=== PATIENT | male | born 1960 | race Caucasian/White ===

== ENCOUNTER 2017-02-10 16:46 | Emergency (ER) | payer OTHER ==
[~2017-02-10] VITALS: Ht 190.5 cm; Wt 104.3 kg
[~2017-02-10 16:46] MED LIST: AMLO10 PO; BACL10 PO; CARV25 PO; Cipro500 MG PO; Cymbalta60 MG PO; DOCU100 PO; DULO60 PO; ENOX40I SC; GABA300 PO; HYDCHL12.5 PO; HYDR1TAB94 PO; LISI20 PO; LISI5 PO; LORA1 PO; LOSA25 PO; METO50 PO; MORP30ER PO; NAPR500 PO; Naprosyn500 MG PO; Norco 5-325 Ta1 EACH PO; OXYC10TA19 PO; OXYC5 PO; PROC10 PO; Pyridium200 MG PO; QUET100 PO; RXHYDACE PO; Robaxin500 MG PO; SERT100 PO; SERT25 PO; SIME80CH PO; TAMS.4ER PO; Zestril30 MG PO; [UNRECOGNIZED DRUG - CODE] PO; [UNRECOGNIZED DRUG - OTHER]
[2017-02-10] MEDS ORDERED: Permethrin60 GM TOP (17:45)
[2017-02-10] MEDS ORDERED: HYDHCL25 PO (17:45)
== END 2017-02-10 17:47 | disposition home or self-care (01) ==
LOC: ER 16:46
DX: L25.9 Unspecified contact dermatitis, unspecified cause (principal); Z88.8 Allergy status to other drugs, medicaments and biological substances; Z79.899 Other long term (current) drug therapy; I10 Essential (primary) hypertension
CPT/HCPCS: 99283

== ENCOUNTER 2018-06-05 10:37 | Emergency (ER) | payer OTHER ==
[~2018-06-05] VITALS: Ht 190.5 cm; Wt 104.3 kg
[~2018-06-05 10:37] MED LIST changes: +HYDHCL25 PO; +Permethrin60 GM TOP
[2018-06-05 13:03] LABS: BASOPHILS ABSOLUTE AUTO 0.03 K/mm3 (0.00-0.23); BASOPHILS PERCENT AUTO 0 % (0-2); EOSINOPHILS ABSOLUTE AUTO 0.23 K/mm3 (0.00-0.68); EOSINOPHILS PERCENT AUTO 3 % (0-6); Hematocrit 45.4 % (37.0-53.0); Hemoglobin 15.2 g/dL (13.5-17.5); IMMATURE GRAN ABSOLUTE AUTO 0.03 K/mm3 (0.00-0.10); IMMATURE GRAN PERCENT AUTO 0 % (0-1); LYMPHOCYTES ABSOLUTE AUTO 2.16 K/mm3 (0.84-5.20); LYMPHOCYTES PERCENT AUTO 26 % (21-46); MONOCYTES ABSOLUTE AUTO 0.61 K/mm3 (0.16-1.47); MONOCYTES PERCENT AUTO 7 % (4-13); Mean Corpuscular HGB 30.2 pg (26.0-34.0); Mean Corpuscular HGB Conc 33.5 g/dL (31.5-36.5); Mean Corpuscular Volume 90 fL (80-100); Mean Platelet Volume 10.3 fL (9.1-12.4); NEUTROPHILS ABSOLUTE AUTO 5.16 K/mm3 (1.96-9.15); NEUTROPHILS PERCENT AUTO 63 % (41-73); Platelet Count 237 K/mm3 (150-400); RDW Coefficient Variation 12.6 % (11.7-14.2); RDW Standard Deviation 41.2 fL (35.1-46.3); Red Blood Cell Count 5.03 M/mm3 (4.30-5.90); White Blood Cell Count 8.22 K/mm3 (4.00-11.30)
[2018-06-05 13:26] LABS: Alanine Aminotransfer (ALT/SGP 37 U/L (12-78); Albumin, Blood 3.7 g/dL (3.4-5.0); Albumin/Globulin Ratio 1.2 (0.8-1.8); Alk Phos 85 U/L (50-136); Anion Gap 7 mmol/L (6-16); Aspartate Aminotrans (AST/SGOT 14 U/L (12-37); Bilirubin, Total 0.7 mg/dL (0.1-1.0); Blood Urea Nitrogen 11 mg/dL (8-24); Bun/Creatinine Ratio 10.3 (12.0-20.0); CO2, Blood 27 mmol/L (21-32); Chloride, Blood 109 mmol/L (98-108); Creatinine, Blood 1.07 mg/dL (0.60-1.20); Globulin, Blood 3.1 g/dL (2.2-4.0); Glomerular Filtration Rate >60 (60-); Glucose, Blood 115 mg/dL (70-99); Potassium, Blood 3.7 mmol/L (3.5-5.5); Sodium, Blood 143 mmol/L (136-145); Total Protein, Blood 6.8 g/dL (6.4-8.2)
[2018-06-05] MEDS ORDERED: Hydrochlorothia25 MG PO (14:36)
== END 2018-06-05 14:49 | disposition home or self-care (01) ==
LOC: ER 10:37
PROVIDERS: Emergency Medicine
DX: I16.0 Hypertensive urgency (principal); I10 Essential (primary) hypertension; Z88.8 Allergy status to other drugs, medicaments and biological substances; Z85.048 Personal history of other malignant neoplasm of rectum, rectosigmoid junction, and anus
CPT/HCPCS: 70450; 71045; 80053; 85025; 93005; 93010; 96374; 99285-25; J2543

== ENCOUNTER 2018-07-19 13:53 | Inpatient (IN) | payer OTHER ==
[~2018-07-19] VITALS: Ht 190.5 cm; Wt 110.1 kg
[~2018-07-19 13:53] MED LIST changes: +Hydrochlorothia25 MG PO
[2018-07-19] MEDS ORDERED: LISI5 PO (15:24)
[2018-07-19] MEDS ORDERED: TAMS.4ER PO (15:25)
[2018-07-19] MEDS ORDERED: Cymbalta20 MG PT (15:25)
[2018-07-19] MEDS ORDERED: GABA100 PO (15:25)
[2018-07-19] MEDS ORDERED: ATOR10 PO (15:25)
[2018-07-19 15:41] LABS: BASOPHILS ABSOLUTE AUTO 0.02 K/mm3 (0.00-0.23); BASOPHILS PERCENT AUTO 0 % (0-2); EOSINOPHILS ABSOLUTE AUTO 0.01 K/mm3 (0.00-0.68); EOSINOPHILS PERCENT AUTO 0 % (0-6); Hematocrit 41.9 % (37.0-53.0); Hemoglobin 14.2 g/dL (13.5-17.5); IMMATURE GRAN ABSOLUTE AUTO 0.13 K/mm3 (0.00-0.10); IMMATURE GRAN PERCENT AUTO 1 % (0-1); LYMPHOCYTES ABSOLUTE AUTO 0.68 K/mm3 (0.84-5.20); LYMPHOCYTES PERCENT AUTO 5 % (21-46); MONOCYTES ABSOLUTE AUTO 1.08 K/mm3 (0.16-1.47); MONOCYTES PERCENT AUTO 7 % (4-13); Mean Corpuscular HGB 30.5 pg (26.0-34.0); Mean Corpuscular HGB Conc 33.9 g/dL (31.5-36.5); Mean Corpuscular Volume 90 fL (80-100); NEUTROPHILS ABSOLUTE AUTO 12.96 K/mm3 (1.96-9.15); NEUTROPHILS PERCENT AUTO 87 % (41-73); RDW Coefficient Variation 13.4 % (11.7-14.2); RDW Standard Deviation 44.3 fL (35.1-46.3); Red Blood Cell Count 4.65 M/mm3 (4.30-5.90); White Blood Cell Count 14.88 K/mm3 (4.00-11.30)
[2018-07-19 15:42] LABS: Mean Platelet Volume 10.2 fL (9.1-12.4); Platelet Count 195 K/mm3 (150-400)
[2018-07-19 15:56] LABS: Alanine Aminotransfer (ALT/SGP 39 U/L (12-78); Albumin, Blood 4.2 g/dL (3.4-5.0); Albumin/Globulin Ratio 1.6 (0.8-1.8); Alk Phos 76 U/L (50-136); Anion Gap 12 mmol/L (6-16); Aspartate Aminotrans (AST/SGOT 18 U/L (12-37); Bilirubin, Total 1.9 mg/dL (0.1-1.0); Blood Urea Nitrogen 22 mg/dL (8-24); Bun/Creatinine Ratio 8.1 (12.0-20.0); CO2, Blood 21 mmol/L (21-32); Calcium, Blood 9.1 mg/dL (8.5-10.1); Chloride, Blood 109 mmol/L (98-108); Creatinine, Blood 2.71 mg/dL (0.60-1.20); Ethanol (Alcohol), Blood, Med <3 mg/dL; Globulin, Blood 2.6 g/dL (2.2-4.0); Glomerular Filtration Rate 26 (60-); Glucose, Blood 197 mg/dL (70-99); Potassium, Blood 3.7 mmol/L (3.5-5.5); Sodium, Blood 142 mmol/L (136-145); Total Protein, Blood 6.8 g/dL (6.4-8.2); Troponin I <0.015 ng/mL (0.000-0.040)
[2018-07-19 16:11] LABS: Bicarbonate Venous 20.9 mmol/L (24.0-30.0); PCO2 Venous 35.1 mmHg (38-42); PO2 Venous 111 mmHg (38-42); pH Blood Venous 7.37 (7.34-7.37)
[2018-07-19 16:12] LABS: Base Excess Venous -5.1 mmol/L
[2018-07-19 18:30] LABS: Magnesium, Blood 2.2 mg/dL (1.6-2.4); Phosphorus, Blood 4.7 mg/dL (2.5-4.9)
[2018-07-19 22:27] LABS: Source, Urine Voided
[2018-07-19 22:34] LABS: Bilirubin, Urine Neg (Neg); Blood, Urine 1+ (Neg); Glucose Qualitative, Urine Neg (Neg); Ketones, Urine Neg (Neg); Leukocyte Esterase, Urine Neg (Neg); Nitrite, Urine Neg (Neg); Protein, Urine 1+ (Neg); Specific Gravity, Urine 1.005 (1.003-1.022); Urobilinogen, Urine NORM (Normal)
[2018-07-19 22:37] LABS: Appearance, Urine Clear (Clear); Color, Urine Yellow (P-Yellow)
[2018-07-19 22:40] LABS: Bacteria Few /hpf; Red Blood Cells, Urine 0-2 /hpf (0-2); Squamous Epithelial Cells Not Seen /hpf (Few); White Blood Cells, Urine 0-2 /hpf (0-5)
[2018-07-19 22:46] LABS: U Amphetamine Screen DETECTED; U Barbituate Screen Not Detected; U Benzodiazapine Screen Not Detected; U Buprenorphine Screen Not Detected; U Cannabinoids Screen Not Detected; U Cocaine Screen Not Detected; U Methadone Screen Not Detected; U Methamphetamine Screen DETECTED; U Opiates Screen Not Detected; U Oxycodone Screen Not Detected; U Phencyclidine Screen Not Detected; U Propoxyphene Screen Not Detected
[2018-07-20 04:48] LABS: BASOPHILS ABSOLUTE AUTO 0.02 K/mm3 (0.00-0.23); BASOPHILS PERCENT AUTO 0 % (0-2); EOSINOPHILS ABSOLUTE AUTO 0.12 K/mm3 (0.00-0.68); EOSINOPHILS PERCENT AUTO 1 % (0-6); Hematocrit 42.3 % (37.0-53.0); Hemoglobin 14.1 g/dL (13.5-17.5); IMMATURE GRAN ABSOLUTE AUTO 0.07 K/mm3 (0.00-0.10); IMMATURE GRAN PERCENT AUTO 1 % (0-1); LYMPHOCYTES ABSOLUTE AUTO 1.81 K/mm3 (0.84-5.20); LYMPHOCYTES PERCENT AUTO 16 % (21-46); MONOCYTES ABSOLUTE AUTO 0.91 K/mm3 (0.16-1.47); MONOCYTES PERCENT AUTO 8 % (4-13); Mean Corpuscular HGB Conc 33.3 g/dL (31.5-36.5); Mean Corpuscular Volume 90 fL (80-100); Mean Platelet Volume 10.1 fL (9.1-12.4); NEUTROPHILS ABSOLUTE AUTO 8.15 K/mm3 (1.96-9.15); NEUTROPHILS PERCENT AUTO 74 % (41-73); Platelet Count 193 K/mm3 (150-400); RDW Coefficient Variation 13.6 % (11.7-14.2); RDW Standard Deviation 44.8 fL (35.1-46.3); White Blood Cell Count 11.08 K/mm3 (4.00-11.30)
[2018-07-20 05:01] LABS: International Normalized Ratio 1.03; Prothrombin Time Results 10.9 Sec (9.7-11.5)
[2018-07-20 05:20] LABS: Bun/Creatinine Ratio 8.3 (12.0-20.0); Calcium, Blood 8.5 mg/dL (8.5-10.1); Creatinine, Blood 3.36 mg/dL (0.60-1.20); Potassium, Blood 2.7 mmol/L (3.5-5.5)
--- NOTE | 2018-07-20 06:17 | NUR ---
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 PT CAME IN WITH TOXIC METABOLIC ENCEPHALOPATHY. FOUND DOWN IN THE YARD AT HOME BY NEIGHBORS. PT FAIRLY CONFUSED AND MUMBLES WHEN SPEAKING. CAN MAKE MOST NEEDS KNOWN AND CAN ANSWER YES/NO QUESTIONS. URINE TOX POSITIVE FOR METH AND TRICYCLICS. PT DENIES REGULAR ALCOHOL CONSUMPTION BUT CIWA'S STILL ORDERED. CIWA WAS 6, MAINLY BECAUSE OF CONFUSION. PT DID SEEM TO HAVE SOME MINOR VISUAL HALLUCINATIONS AT ONE POINT, THOUGHT HE SAW A DOG. HOWEVER HE MAY HAVE BEEN REFERRING TO HIS DOG AT HOME. PT HYPERTENSIVE WITH MORNING VITALS WITH SBP 190'S. RECIEVED ORDER FROM DR JOAQUIN FOR PRN HYDRALAZINE. PT HAD PHONE AND WALLET WHEN HE CAME TO ROOM. WALLET HAD CABELLO INSIDE. CALLED HARPREET FROM SECURITY TO PLACE PHONE AND WALLET IN SAFE. BED ALARM ON PT DOES ATTEMPT TO GET OUT OF BED AT TIMES BUT IS EASILY REDIRECTABLE. WILL CONTINUE TO MONITOR.
--- NOTE | 2018-07-20 14:42 | NUR ---
I received a doctor's request to visit patient. Patient is lying in bed stating that he is dying and is afraid he is going to hell. Patient also says, "He can't take it," and "He could not go on any longer." Patient immediately asks me to pray for him so he "does not go to hell" for killing himself. I provide a prayer of forgiveness of sins and tell patient that he is not going to right now. Patient begins to calm down but then starts counting down from ten and saying that he is ready and he is going to heaven. He repeats this several times and continues to live. Then his RN comes in to concrete bucket hooker his ostomy bag. I hold patient's hand through the procedure. When procedure is completed, I pray a second time for patient and he is so peaceful he looks as if he could fall asleep. Patient thanks me for the visit.
--- NOTE | 2018-07-20 16:54 | NUR ---
SHIFT SUMMARY NO ACUTE CHANGES. PATIENT IS BECOMING MORE ALERT AND ACTIVE DURING SHIFT. PATIENT WORKED WITH PT/OT. UP 1 ASSIST W/FWW. PATIENT CONTINUES TO BE VERY CONFUSED AND NEEDS FREQUENT REORIENTATION. PATIENT STATES HE BELIEVES HE IS DYING. CONSULT SENT TO DR. GUZMAN. CALL LIGHT IN REACH, WILL CONTINUE TO MONITOR.
--- NOTE | 2018-07-20 18:22 | NUR ---
[facility] Spiritual Care initial visit: Gary was quite talkative, but appeared mentally fuzzy. His story kept changing. At first he told me he has "two options: Go to nursing home or ." He beleives he will be arrested post-discharge. He could not adequately explain why. He also couldn't tell me why he thought he was dying. He denied having any family or friends. He also states that he is being evicted and he will be homeless. He says the rescue mission will not take him due to his colostemy. It was unclear if any of this was accurate. He was very relieved when I explained to him that, for today anyway, he was staying here where it is safe and cool. I affimred he is being well cared-for. This appeared to calm him. He allowed me to pray for him. [employer] will remain available.
[2018-07-21 02:03] LABS: Creatinine Urine 14.2 mg/dL (27.00-270.00)
--- NOTE | 2018-07-21 04:51 | NUR ---
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 KNOWS HE'S AT THE HOSPITAL IN [place]. KNOWS THE DATE AND PRESIDENT. SPEECH IS MUCH MORE CLEAR AND PT CAN MAKE NEEDS KNOWN. STILL SOME CONFUSION AT TIMES AND PT OFTEN SPEAKS ABOUT HOW ITS TIME FOR HIM TO "PASS AWAY". 24 HOUR URINE COLLECTION COMPLETED TONIGHT. PT CONTINUES ON D51/2 NS WITH K+. VSS, WILL CONTINUE TO MONITOR.
[2018-07-21 05:13] LABS: Bun/Creatinine Ratio 9.4 (12.0-20.0); Calcium, Blood 8.7 mg/dL (8.5-10.1); Creatinine, Blood 3.62 mg/dL (0.60-1.20); Potassium, Blood 3.1 mmol/L (3.5-5.5)
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
[2018-07-21 11:37] LABS: Magnesium, Blood 1.8 mg/dL (1.6-2.4); Potassium, Blood 3.1 mmol/L (3.5-5.5)
--- NOTE | 2018-07-21 19:52 | NUR ---
SHIFT SUMMARY- PT HAS HAD SOME INCREASE IN MENTAL CLARITY, BUT IS STILL CONFUSED. DR RENEE WAS CONSULTED. CALLED WITH LAB RESULT AFTER SHIFT CHANGE AND RECIEVED VERBAL ORDERS FOR ADDITIONAL POTASSIUM. CALLED NIGHT RHINA FOLEY AND UPDATED, ORDER IN EMAR. PT HAS NO S&S OF DISTRESS NOTED AT THE TIME OF SHIFT CHANGE.
[2018-07-22 04:56] LABS: BASOPHILS ABSOLUTE AUTO 0.04 K/mm3 (0.00-0.23); BASOPHILS PERCENT AUTO 0 % (0-2); EOSINOPHILS ABSOLUTE AUTO 0.23 K/mm3 (0.00-0.68); EOSINOPHILS PERCENT AUTO 2 % (0-6); Hematocrit 43.8 % (37.0-53.0); Hemoglobin 14.6 g/dL (13.5-17.5); IMMATURE GRAN ABSOLUTE AUTO 0.05 K/mm3 (0.00-0.10); IMMATURE GRAN PERCENT AUTO 1 % (0-1); LYMPHOCYTES ABSOLUTE AUTO 2.39 K/mm3 (0.84-5.20); LYMPHOCYTES PERCENT AUTO 22 % (21-46); MONOCYTES PERCENT AUTO 10 % (4-13); Mean Corpuscular HGB Conc 33.3 g/dL (31.5-36.5); Mean Corpuscular Volume 90 fL (80-100); Mean Platelet Volume 10.1 fL (9.1-12.4); NEUTROPHILS ABSOLUTE AUTO 6.97 K/mm3 (1.96-9.15); NEUTROPHILS PERCENT AUTO 65 % (41-73); Platelet Count 217 K/mm3 (150-400); RDW Coefficient Variation 13.2 % (11.7-14.2); RDW Standard Deviation 43.5 fL (35.1-46.3); Red Blood Cell Count 4.87 M/mm3 (4.30-5.90); White Blood Cell Count 10.78 K/mm3 (4.00-11.30)
[2018-07-22 05:17] LABS: Alanine Aminotransfer (ALT/SGP 32 U/L (12-78); Albumin, Blood 3.4 g/dL (3.4-5.0); Albumin/Globulin Ratio 1.2 (0.8-1.8); Alk Phos 71 U/L (50-136); Anion Gap 10 mmol/L (6-16); Aspartate Aminotrans (AST/SGOT 15 U/L (12-37); Bilirubin, Total 0.9 mg/dL (0.1-1.0); Blood Urea Nitrogen 32 mg/dL (8-24); Bun/Creatinine Ratio 15.4 (12.0-20.0); CO2, Blood 24 mmol/L (21-32); Calcium, Blood 8.2 mg/dL (8.5-10.1); Chloride, Blood 107 mmol/L (98-108); Creatinine, Blood 2.08 mg/dL (0.60-1.20); Globulin, Blood 2.8 g/dL (2.2-4.0); Glomerular Filtration Rate 35 (60-); Glucose, Blood 152 mg/dL (70-99); Magnesium, Blood 1.9 mg/dL (1.6-2.4); Phosphorus, Blood 3.2 mg/dL (2.5-4.9); Potassium, Blood 3.4 mmol/L (3.5-5.5); Sodium, Blood 141 mmol/L (136-145); Total Protein, Blood 6.2 g/dL (6.4-8.2)
--- NOTE | 2018-07-22 06:55 | NUR ---
SHIFT SUMMARY PT A/O FOR MOST PART JUST DIDN'T KNOW CURRENT PRESIDENT. ASSISTED C GETTING A SHOWER. CIWA SCORE NEGATIVE EXCEPT FOR SLIGHT CONFUSION AT TIMES. HE WAS ABLE TO SLEEP T/O NIGHT. SBA Guillermo MYERS WHEN OOB AND TO BA. JUANITA DRAINING AND OSTOMY BAG CHANGED AND OUTPUTTING BROWN LIQ. CALL LIGHT IN REACH.
--- NOTE | 2018-07-22 18:39 | NUR ---
SHIFT SUMMARY- PT ALERT AND ORIENTED WITH SOME MEMORY ISSUES. PT HAS HAD NO C/O PAIN T/O THE SHIFT, SOME MEDICATION CHANGES SEE EMAR FOR DETAILS. PT CURRENTLY SITTING UP IN BED, CALL LIGHT IN REACH, VISITING WITH A FRIEND. PT MIND SEEMS TO HAVE CLEARED ALOT OVER THE PAST TWO DAYS. PT STILL UNSTEADY ON HIS FEET, AND IS STILL A SBA FOR TRANSFERS. PT HAS A GRANT THAT IS PATENT AND DRAINING TO GRAVITY, PT HAS FLOMAX IN PAST MED Hx WILL DISCUSS THIS WITH TOMORROW MORNING. NO S&S OF PAIN OR DISTRESS NOTED, WILL CTM AND PASS ON IN BEDSIDE REPORT.
[2018-07-23 05:21] LABS: BASOPHILS ABSOLUTE AUTO 0.04 K/mm3 (0.00-0.23); BASOPHILS PERCENT AUTO 0 % (0-2); EOSINOPHILS PERCENT AUTO 2 % (0-6); Hematocrit 42.8 % (37.0-53.0); Hemoglobin 14.5 g/dL (13.5-17.5); IMMATURE GRAN ABSOLUTE AUTO 0.04 K/mm3 (0.00-0.10); IMMATURE GRAN PERCENT AUTO 0 % (0-1); LYMPHOCYTES ABSOLUTE AUTO 2.25 K/mm3 (0.84-5.20); LYMPHOCYTES PERCENT AUTO 24 % (21-46); MONOCYTES ABSOLUTE AUTO 0.85 K/mm3 (0.16-1.47); MONOCYTES PERCENT AUTO 9 % (4-13); Mean Corpuscular HGB 30.1 pg (26.0-34.0); Mean Corpuscular HGB Conc 33.9 g/dL (31.5-36.5); Mean Corpuscular Volume 89 fL (80-100); Mean Platelet Volume 10.4 fL (9.1-12.4); NEUTROPHILS ABSOLUTE AUTO 6.07 K/mm3 (1.96-9.15); NEUTROPHILS PERCENT AUTO 64 % (41-73); Platelet Count 208 K/mm3 (150-400); RDW Coefficient Variation 13.1 % (11.7-14.2); RDW Standard Deviation 42.8 fL (35.1-46.3); Red Blood Cell Count 4.81 M/mm3 (4.30-5.90); White Blood Cell Count 9.45 K/mm3 (4.00-11.30)
[2018-07-23 05:58] LABS: Albumin, Blood 3.4 g/dL (3.4-5.0); Anion Gap 7 mmol/L (6-16); Blood Urea Nitrogen 23 mg/dL (8-24); Bun/Creatinine Ratio 16.2 (12.0-20.0); CO2, Blood 26 mmol/L (21-32); Calcium, Blood 8.4 mg/dL (8.5-10.1); Chloride, Blood 107 mmol/L (98-108); Creatinine, Blood 1.42 mg/dL (0.60-1.20); Glomerular Filtration Rate 54 (60-); Glucose, Blood 118 mg/dL (70-99); Magnesium, Blood 1.8 mg/dL (1.6-2.4); Phosphorus, Blood 2.7 mg/dL (2.5-4.9); Potassium, Blood 3.3 mmol/L (3.5-5.5); Sodium, Blood 140 mmol/L (136-145)
--- NOTE | 2018-07-23 07:00 | NUR ---
ASSUMED CARE OF PT- PT SLEEPING AT TIME OF SHIFT CHANGE. PER REPORT FROM NIGHT RN PT HAD AN EPISODE OF TACHYCARDIA LAST NIGHT THAT COINCIDED WITH STAFF ENTERING THE ROOM AND PT STARTLING AWAKE, PT SUSTAINED FOR A TIME. VITALS WERE STABLE PER REPORT. PT ON TELE HR IN THE 70-80 RANGE ON AVERAGE. PT POTASSIUM LEVEL WENT DOWN AGAIN WITH THIS MORNING LAB RESULTS; BEING FOLLOWED BY NEPHROLOGY.
--- NOTE | 2018-07-23 11:14 | NUR ---
PT HAD A VISITOR ENTER THE ROOM THEY BEGAN TALKING AND STAFF COULD HEAR THE PT VISITOR GETTING UPSET SAYING LOUDLY "THEY HAVE NO RIGHT TO DO THAT TO YOU" AND "THAT'S CRIMINAL", "YOU NEED TO GET THAT BACK RIGHT NOW." THEN THE VISITOR WENT TO THE DESK AND BEGAN TELLING STAFF THE PT WANT HIS WALLET BACK. SECURITY WAS CALLED TO HANDLE THE SITUATION, PT WALLET WAS SENT WITH SECURITY TO THE SAFE DOWN STAIRS WHEN PT WAS ADMITTED D/T ALTERED MENTAL STATUS AT THAT TIME. PT ALTERED MENTAL STATUS APPEARS TO BE RESOLVED. MATIAS FROM [employer] WENT INTO THE ROOM, SPOKE TO THE PT AND HIS VISITOR. MATIAS IS CURRENTLY RETRIEVING THE PT BELONGINGS AT HIS REQUEST.
--- NOTE | 2018-07-23 18:02 | NUR ---
SHIFT SUMMARY- PT HAS HAD NO C/O PAIN T/O THE SHIFT TODAY WAS MEDICATED WITH TYLENOL FOR SLIGHTLY ELEVATED TEMP 99.4. PT ALERT AND ORIENTED X3 FORGETFUL AT TIMES. PT STILL HAS A GRANT CATHETER AT THIS TIMEPATENT AND DRAINING, LARGE AMOUNTS OF CLEAR YELLOW URINE.
[2018-07-24 05:09] LABS: BASOPHILS ABSOLUTE AUTO 0.04 K/mm3 (0.00-0.23); BASOPHILS PERCENT AUTO 1 % (0-2); EOSINOPHILS ABSOLUTE AUTO 0.19 K/mm3 (0.00-0.68); EOSINOPHILS PERCENT AUTO 2 % (0-6); Hematocrit 41.6 % (37.0-53.0); Hemoglobin 13.8 g/dL (13.5-17.5); IMMATURE GRAN ABSOLUTE AUTO 0.05 K/mm3 (0.00-0.10); IMMATURE GRAN PERCENT AUTO 1 % (0-1); LYMPHOCYTES ABSOLUTE AUTO 2.19 K/mm3 (0.84-5.20); LYMPHOCYTES PERCENT AUTO 25 % (21-46); MONOCYTES ABSOLUTE AUTO 0.75 K/mm3 (0.16-1.47); MONOCYTES PERCENT AUTO 9 % (4-13); Mean Corpuscular HGB 30.1 pg (26.0-34.0); Mean Corpuscular HGB Conc 33.2 g/dL (31.5-36.5); Mean Corpuscular Volume 91 fL (80-100); Mean Platelet Volume 10.5 fL (9.1-12.4); NEUTROPHILS ABSOLUTE AUTO 5.59 K/mm3 (1.96-9.15); NEUTROPHILS PERCENT AUTO 63 % (41-73); Platelet Count 207 K/mm3 (150-400); RDW Coefficient Variation 12.7 % (11.7-14.2); RDW Standard Deviation 42.1 fL (35.1-46.3); Red Blood Cell Count 4.59 M/mm3 (4.30-5.90); White Blood Cell Count 8.81 K/mm3 (4.00-11.30)
[2018-07-24 05:40] LABS: Albumin, Blood 3.3 g/dL (3.4-5.0); Anion Gap 6 mmol/L (6-16); Blood Urea Nitrogen 20 mg/dL (8-24); Bun/Creatinine Ratio 15.3 (12.0-20.0); CO2, Blood 28 mmol/L (21-32); Calcium, Blood 8.7 mg/dL (8.5-10.1); Chloride, Blood 109 mmol/L (98-108); Creatinine, Blood 1.31 mg/dL (0.60-1.20); Glomerular Filtration Rate 60 (60-); Glucose, Blood 107 mg/dL (70-99); Phosphorus, Blood 2.6 mg/dL (2.5-4.9); Potassium, Blood 3.7 mmol/L (3.5-5.5); Sodium, Blood 143 mmol/L (136-145)
--- NOTE | 2018-07-24 06:19 | NUR ---
SHIFT SUMMARY PATIENT HAD NO EVENTS THROUGHOUT THE BLEACH SUPERVISOR. PATIENT TOOK EVENING MEDS AND THEN GAVE SELF A SHOWER AND CHANGED OUT OSTOMY BAG AND OSTOMY WAFER. PATIENT THEN SLEPT THROUGH THE NIGHT.
--- NOTE | 2018-07-24 16:04 | NUR ---
Spiritual care visit conducted. Patient immediately shares about his financial concerns, his fears about not being able to manage for the basic needs of food, chcf and medical care for his health needs. We talk about the spiritual aspects of dannie, healthy living and persevering. We talk about what he can do and does have. I listen empathically, reinforce helpful attitudes and practices and provide pastoral mental health counselor, emotional support and prayer. Patient responds well and thanks me for the visit.
--- NOTE | 2018-07-24 17:24 | NUR ---
SUMMARY PT RESTING IN BED WATCHING TV, PT HAS BEEN INDEPENDENT IN THE ROOM, COOPERATIVE WITH CARE, WORKED WITH PT/OT TODAY, NO COMPLAINTS, VSS, NO ACUTE CHANGES, WILL CONT TO MONITOR
[2018-07-25 04:36] LABS: Hematocrit 39.5 % (37.0-53.0); Hemoglobin 13.6 g/dL (13.5-17.5)
[2018-07-25 04:50] LABS: Albumin, Blood 3.2 g/dL (3.4-5.0); Anion Gap 5 mmol/L (6-16); Blood Urea Nitrogen 20 mg/dL (8-24); Bun/Creatinine Ratio 16.8 (12.0-20.0); CO2, Blood 27 mmol/L (21-32); Calcium, Blood 8.7 mg/dL (8.5-10.1); Chloride, Blood 112 mmol/L (98-108); Creatinine, Blood 1.19 mg/dL (0.60-1.20); Glomerular Filtration Rate >60 (60-); Glucose, Blood 106 mg/dL (70-99); Magnesium, Blood 1.9 mg/dL (1.6-2.4); Phosphorus, Blood 2.9 mg/dL (2.5-4.9); Potassium, Blood 3.7 mmol/L (3.5-5.5); Sodium, Blood 144 mmol/L (136-145)
--- NOTE | 2018-07-25 07:06 | NUR ---
started on bladder training at 0630, procedure explained, call light in reach, saline locked due to saline being dc'd, room air, bsr provided to returning day shift nurse.
--- NOTE | 2018-07-25 10:30 | NUR ---
SUMMARY PT DISCHARGED TO HOME, A FRIEND SHOWED UP TO TAKE HIM AND WAS NOT WANTING TO WAIT FOR THE DISCHARGE INSTRUCTIONS, PT ALMOST LEFT AMA, DID NOT WANT THE LIST OF MEDICATIONS HE WAS DISCHARGED WITH, PT ABLE TO WALK SAFELY OUT WITH NO ISSUES
--- NOTE | 2018-07-25 10:42 | NUR ---
GRANT PRIOR TO DISCHARGE, GRANT CATHETER REMOVED AND PT HAS BEEN ABLE TO VOID
== END 2018-07-25 10:55 | disposition home health service (06) | DRG 917 ==
LOC: ER 13:53 → MEDS 17:44
PROVIDERS: Emergency Medicine; Internal Medicine; Internal Medicine Nephrology; Nurse Practitioner Acute Care; ADMIT Family Medicine
DX: T43.622A Poisoning by amphetamines, intentional self-harm, initial encounter (principal); G92 Toxic encephalopathy; N17.9 Acute kidney failure, unspecified; E86.9 Volume depletion, unspecified; F31.9 Bipolar disorder, unspecified; F17.210 Nicotine dependence, cigarettes, uncomplicated; Z85.048 Personal history of other malignant neoplasm of rectum, rectosigmoid junction, and anus; Z93.3 Colostomy status; E86.0 Dehydration; E87.6 Hypokalemia; R19.7 Diarrhea, unspecified; I10 Essential (primary) hypertension; F15.10 Other stimulant abuse, uncomplicated; F10.20 Alcohol dependence, uncomplicated; G89.29 Other chronic pain; K21.9 Gastro-esophageal reflux disease without esophagitis
CPT/HCPCS: 36415; 70450; 71045; 76770; 80048; 80053; 80069; 81001; 81050; 82550; 82570; 82803; 83036; 83735; 84100; 84132; 84300; 84484; 85014; 85018; 85025; 85610; 87015; 87045; 87046; 87205; 87899; 93005; 93010; 96360; 96361; 97110; 97116; 97162; 97166; 97530; 97535; 99285-25; A9270; G0480; J0360; J1644; J1650; J3480; J7030; J7042

== ENCOUNTER 2018-08-15 07:21 | Emergency (ER) | payer OTHER ==
[~2018-08-15] VITALS: Ht 190.5 cm; Wt 113.4 kg
[~2018-08-15 07:21] MED LIST changes: +ATOR10 PO; +Cymbalta20 MG PT; +GABA100 PO
[2018-08-15] MEDS ORDERED: Zovirax800 MG PO (07:43)
[2018-08-15] MEDS ORDERED: IBUP600 PO (07:43)
== END 2018-08-15 07:51 | disposition home or self-care (01) ==
LOC: ER 07:21
DX: B02.9 Zoster without complications (principal); Z88.8 Allergy status to other drugs, medicaments and biological substances; Z79.899 Other long term (current) drug therapy; I10 Essential (primary) hypertension; F31.9 Bipolar disorder, unspecified; F17.210 Nicotine dependence, cigarettes, uncomplicated
CPT/HCPCS: 99282

== ENCOUNTER → 2018-12-18 | Outpatient (CLI) | payer OTHER ==
[~2018-12-18] MED LIST changes: +IBUP600 PO; +Zovirax800 MG PO
== END | disposition home or self-care (01) ==
LOC: LAB EV 13:23 → LAB SHORT 13:23
DX: N39.0 Urinary tract infection, site not specified (principal)
CPT/HCPCS: 87077; 87086; 87186

== ENCOUNTER → 2019-02-09 | Outpatient (CLI) | payer OTHER ==
[2019-02-09 16:13] LABS: Appearance, Urine Clear (Clear); Bilirubin, Urine Neg (Neg); Blood, Urine Neg (Neg); Color, Urine Yellow (P-Yellow); Glucose Qualitative, Urine 4+ (Neg); Ketones, Urine Neg (Neg); Leukocyte Esterase, Urine Neg (Neg); Nitrite, Urine Neg (Neg); Protein, Urine Neg (Neg); Urobilinogen, Urine NORM (Normal)
== END | disposition home or self-care (01) ==
LOC: LAB SHORT 14:28 → LAB 14:28
PROVIDERS: Internal Medicine Nephrology
DX: N39.0 Urinary tract infection, site not specified (principal)
CPT/HCPCS: 81003

== ENCOUNTER → 2019-05-07 | Outpatient (CLI) | payer OTHER ==
[2019-05-07 18:01] LABS: Bilirubin, Urine Neg (Neg); Blood, Urine Neg (Neg); Glucose Qualitative, Urine Neg (Neg); Ketones, Urine Neg (Neg); Leukocyte Esterase, Urine Neg (Neg); Nitrite, Urine Neg (Neg); Protein, Urine Neg (Neg); Specific Gravity, Urine 1.015 (1.003-1.022); Urobilinogen, Urine NORM (Normal)
[2019-05-07 18:22] LABS: Appearance, Urine Clear (Clear); Color, Urine Yellow (P-Yellow)
== END ==
LOC: LAB SHORT 15:20 → LAB 15:20
PROVIDERS: Family Medicine
DX: N39.0 Urinary tract infection, site not specified (principal)
CPT/HCPCS: 81003

== ENCOUNTER → 2019-05-14 | Outpatient (CLI) | payer OTHER ==
[2019-05-14 12:29] LABS: Alanine Aminotransfer (ALT/SGP 69 U/L (12-78); Albumin, Blood 3.8 g/dL (3.4-5.0); Albumin/Globulin Ratio 1.2 (0.8-1.8); Alk Phos 57 U/L (50-136); Anion Gap 6 mmol/L (6-16); Aspartate Aminotrans (AST/SGOT 56 U/L (12-37); Bilirubin, Direct 0.2 mg/dL (0.0-0.3); Bilirubin, Indirect 0.6 mg/dL (0.1-0.7); Bilirubin, Total 0.8 mg/dL (0.1-1.0); Blood Urea Nitrogen 21 mg/dL (8-24); Bun/Creatinine Ratio 18.8 (12.0-20.0); CHOL/HDL RATIO 5.2; CO2, Blood 29 mmol/L (21-32); Calcium, Blood 9.3 mg/dL (8.5-10.1); Chloride, Blood 105 mmol/L (98-108); Cholesterol 131 mg/dL (50-200); Creatinine, Blood 1.12 mg/dL (0.60-1.20); Globulin, Blood 3.1 g/dL (2.2-4.0); Glomerular Filtration Rate >60 (60-); Glucose, Blood 216 mg/dL (70-99); HDL Cholesterol 25 mg/dL (>39); LDL/HDL RATIO 1.6; Low Density Lipoprotein Chol 40 mg/dL (0-110); Magnesium, Blood 2.2 mg/dL (1.6-2.4); Phosphorus, Blood 3.1 mg/dL (2.5-4.9); Potassium, Blood 4.3 mmol/L (3.5-5.5); Sodium, Blood 140 mmol/L (136-145); Total Protein, Blood 6.9 g/dL (6.4-8.2); Triglycerides 331 mg/dL (30-160); Very Low Density Lipoprot Chol 66 mg/dL (6-32)
== END | disposition home or self-care (01) ==
LOC: LAB SHORT 12:07 → LAB 12:07
PROVIDERS: Internal Medicine Nephrology
DX: N18.2 Chronic kidney disease, stage 2 (mild) (principal); D63.1 Anemia in chronic kidney disease; N25.81 Secondary hyperparathyroidism of renal origin; E55.9 Vitamin D deficiency, unspecified; E78.00 Pure hypercholesterolemia, unspecified; R94.5 Abnormal results of liver function studies
CPT/HCPCS: 80053; 80061; 82248; 83735; 84100

== ENCOUNTER → 2019-12-31 | Outpatient (CLI) | payer OTHER ==
[~2019-12-31] MED LIST changes: +AMLO10; +ATOR40TA; +BASAGLAR K100 UNIT/1; +Catapres-Tts 21 EACH; +DULO30; +FENO54; +FURO20 PO; +GABA800; +HYDCHL25; +INSULANPEN SC; +METF500C PO; +MOBIC15 MG; +OLAN7.5; +OMEP20ER; +OXYC10TA19; +POTA10T; +Robaxin750 MG; +THERA-D2000 UNIT PO; +TRAZ100 PO
== END | disposition home or self-care (01) ==
LOC: PLD 10:56
DX: C20 Malignant neoplasm of rectum (principal)
CPT/HCPCS: 82565

== ENCOUNTER → 2020-01-22 | Outpatient (CLI) | payer OTHER ==
[2020-01-22 13:54] LABS: Alanine Aminotransfer (ALT/SGP 65 U/L (12-78); Albumin, Blood 3.5 g/dL (3.4-5.0); Albumin/Globulin Ratio 1.1 (0.8-1.8); Alk Phos 60 U/L (50-136); Anion Gap 7 mmol/L (6-16); Aspartate Aminotrans (AST/SGOT 54 U/L (12-37); Bilirubin, Direct <0.1 mg/dL (0.0-0.3); Bilirubin, Indirect Unable to Calculate mg/dL (0.1-0.7); Bilirubin, Total 0.8 mg/dL (0.1-1.0); Blood Urea Nitrogen 21 mg/dL (8-24); Bun/Creatinine Ratio 20.8 (12.0-20.0); CHOL/HDL RATIO 4.3; CO2, Blood 26 mmol/L (21-32); Calcium, Blood 9.4 mg/dL (8.5-10.1); Chloride, Blood 107 mmol/L (98-108); Cholesterol 129 mg/dL (50-200); Creatinine, Blood 1.01 mg/dL (0.60-1.20); Globulin, Blood 3.2 g/dL (2.2-4.0); Glomerular Filtration Rate >60 (60-); Glucose, Blood 216 mg/dL (70-99); HDL Cholesterol 30 mg/dL (>39); LDL/HDL RATIO 1.8; Low Density Lipoprotein Chol 53 mg/dL (0-110); Phosphorus, Blood 3.2 mg/dL (2.5-4.9); Potassium, Blood 4.6 mmol/L (3.5-5.5); Sodium, Blood 140 mmol/L (136-145); Total Protein, Blood 6.7 g/dL (6.4-8.2); Triglycerides 232 mg/dL (30-160); Very Low Density Lipoprot Chol 46 mg/dL (6-32)
[2020-01-22 14:15] LABS: BASOPHILS ABSOLUTE AUTO 0.04 K/mm3 (0.00-0.23); BASOPHILS PERCENT AUTO 1 % (0-2); EOSINOPHILS ABSOLUTE AUTO 0.35 K/mm3 (0.00-0.68); EOSINOPHILS PERCENT AUTO 5 % (0-6); Hematocrit 42.2 % (37.0-53.0); Hemoglobin 14.2 g/dL (13.5-17.5); IMMATURE GRAN ABSOLUTE AUTO 0.03 K/mm3 (0.00-0.10); IMMATURE GRAN PERCENT AUTO 0 % (0-1); LYMPHOCYTES ABSOLUTE AUTO 1.89 K/mm3 (0.84-5.20); LYMPHOCYTES PERCENT AUTO 27 % (21-46); MONOCYTES ABSOLUTE AUTO 0.53 K/mm3 (0.16-1.47); MONOCYTES PERCENT AUTO 8 % (4-13); Mean Corpuscular HGB 29.7 pg (26.0-34.0); Mean Corpuscular HGB Conc 33.6 g/dL (31.5-36.5); Mean Corpuscular Volume 88 fL (80-100); NEUTROPHILS ABSOLUTE AUTO 4.12 K/mm3 (1.96-9.15); NEUTROPHILS PERCENT AUTO 59 % (41-73); Platelet Count 198 K/mm3 (150-400); RDW Standard Deviation 42.1 fL (35.1-46.3); Red Blood Cell Count 4.78 M/mm3 (4.30-5.90); White Blood Cell Count 6.96 K/mm3 (4.00-11.30)
== END ==
LOC: LAB 09:00
PROVIDERS: Family Medicine
DX: E55.9 Vitamin D deficiency, unspecified (principal); N25.81 Secondary hyperparathyroidism of renal origin; E78.00 Pure hypercholesterolemia, unspecified; R76.9 Abnormal immunological finding in serum, unspecified; R94.5 Abnormal results of liver function studies; R94.6 Abnormal results of thyroid function studies; G60.9 Hereditary and idiopathic neuropathy, unspecified; N18.2 Chronic kidney disease, stage 2 (mild); D63.1 Anemia in chronic kidney disease
CPT/HCPCS: 80053; 80061; 82248; 83970; 84100; 85025

== ENCOUNTER → 2020-02-15 | Outpatient (CLI) | payer OTHER ==
[2020-02-15 12:37] LABS: BASOPHILS ABSOLUTE AUTO 0.04 K/mm3 (0.00-0.23); BASOPHILS PERCENT AUTO 1 % (0-2); EOSINOPHILS ABSOLUTE AUTO 0.28 K/mm3 (0.00-0.68); EOSINOPHILS PERCENT AUTO 4 % (0-6); Hemoglobin 14.4 g/dL (13.5-17.5); IMMATURE GRAN ABSOLUTE AUTO 0.03 K/mm3 (0.00-0.10); IMMATURE GRAN PERCENT AUTO 0 % (0-1); LYMPHOCYTES ABSOLUTE AUTO 2.11 K/mm3 (0.84-5.20); LYMPHOCYTES PERCENT AUTO 26 % (21-46); MONOCYTES ABSOLUTE AUTO 0.67 K/mm3 (0.16-1.47); MONOCYTES PERCENT AUTO 8 % (4-13); Mean Corpuscular HGB 29.2 pg (26.0-34.0); Mean Corpuscular HGB Conc 32.7 g/dL (31.5-36.5); Mean Corpuscular Volume 89 fL (80-100); Mean Platelet Volume 11.4 fL (9.1-12.4); NEUTROPHILS ABSOLUTE AUTO 4.97 K/mm3 (1.96-9.15); NEUTROPHILS PERCENT AUTO 61 % (41-73); Platelet Count 209 K/mm3 (150-400); RDW Standard Deviation 42.5 fL (35.1-46.3); Red Blood Cell Count 4.93 M/mm3 (4.30-5.90)
[2020-02-15 12:43] LABS: Hematocrit 43.9 % (37.0-53.0); Hemoglobin 14.6 g/dL (13.5-17.5); Mean Corpuscular HGB 29.5 pg (26.0-34.0); Mean Corpuscular HGB Conc 33.3 g/dL (31.5-36.5); Mean Corpuscular Volume 89 fL (80-100); Platelet Count 207 K/mm3 (150-400); RDW Coefficient Variation 13.1 % (11.7-14.2); RDW Standard Deviation 42.5 fL (35.1-46.3); Red Blood Cell Count 4.95 M/mm3 (4.30-5.90)
[2020-02-15 13:07] LABS: CHOL/HDL RATIO 5.5; Cholesterol 148 mg/dL (50-200); HDL Cholesterol 27 mg/dL (>39); LDL/HDL RATIO 1.7; Low Density Lipoprotein Chol 45 mg/dL (0-110); Triglycerides 380 mg/dL (30-160); Very Low Density Lipoprot Chol 76 mg/dL (6-32)
[2020-02-15 13:08] LABS: Anion Gap 9 mmol/L (6-16); Blood Urea Nitrogen 16 mg/dL (8-24); CO2, Blood 24 mmol/L (21-32); Calcium, Blood 9.2 mg/dL (8.5-10.1); Chloride, Blood 109 mmol/L (98-108); Creatinine, Blood 0.94 mg/dL (0.60-1.20); Glomerular Filtration Rate >60 (60-); Glucose, Blood 212 mg/dL (70-99); Potassium, Blood 4.3 mmol/L (3.5-5.5); Sodium, Blood 142 mmol/L (136-145)
[2020-02-15 13:15] LABS: Alanine Aminotransfer (ALT/SGP 77 U/L (12-78); Albumin, Blood 3.7 g/dL (3.4-5.0); Albumin/Globulin Ratio 1.1 (0.8-1.8); Alk Phos 59 U/L (50-136); Anion Gap 8 mmol/L (6-16); Aspartate Aminotrans (AST/SGOT 71 U/L (12-37); Bilirubin, Total 0.9 mg/dL (0.1-1.0); Blood Urea Nitrogen 15 mg/dL (8-24); C-REACTIVE PROTEIN, EXT RANGE 0.546 mg/dL (0.000-0.300); CO2, Blood 25 mmol/L (21-32); Calcium, Blood 9.2 mg/dL (8.5-10.1); Chloride, Blood 109 mmol/L (98-108); Creatinine, Blood 0.94 mg/dL (0.60-1.20); Globulin, Blood 3.5 g/dL (2.2-4.0); Glomerular Filtration Rate >60 (60-); Glucose, Blood 217 mg/dL (70-99); Magnesium, Blood 2.1 mg/dL (1.6-2.4); Potassium, Blood 4.3 mmol/L (3.5-5.5); Sodium, Blood 142 mmol/L (136-145); Total Protein, Blood 7.2 g/dL (6.4-8.2)
== END ==
LOC: LAB SHORT 08:00
PROVIDERS: Anesthesiology Pain Medicine; Family Medicine
DX: I10 Essential (primary) hypertension (principal); E11.65 Type 2 diabetes mellitus with hyperglycemia; E07.9 Disorder of thyroid, unspecified; E61.2 Magnesium deficiency; E78.5 Hyperlipidemia, unspecified; R53.83 Other fatigue; E55.9 Vitamin D deficiency, unspecified; D89.9 Disorder involving the immune mechanism, unspecified; M06.4 Inflammatory polyarthropathy; Z79.899 Other long term (current) drug therapy
CPT/HCPCS: 80048; 80053; 80061; 82306; 82607; 83036; 83735; 84443; 85025; 85027; 86140

== ENCOUNTER 2020-06-17 11:58 | Day surgery (SDC) | payer OTHER ==
[~2020-06-17] VITALS: Ht 190.5 cm; Wt 118.0 kg
[~2020-06-17 11:58] MED LIST changes: -FURO20 PO; -INSULANPEN SC; -TRAZ100 PO
[2020-06-17] MEDS ORDERED: INSULANPEN SC (12:56)
[2020-06-17] MEDS ORDERED: TRAZ100 PO (12:56)
[2020-06-17] MEDS ORDERED: FURO20 PO (12:57)
== END 2020-06-17 14:25 | disposition home or self-care (01) ==
LOC: ORSCSDS 11:58
PROVIDERS: Internal Medicine Gastroenterology
PROC: 0DBL8ZX Excision of Transverse Colon, Via Natural or Artificial Opening Endoscopic, Diagnostic (ICD-10-PCS; principal; 2020-06-17 13:30)
DX: Z12.11 Encounter for screening for malignant neoplasm of colon (principal); D12.3 Benign neoplasm of transverse colon; Z85.038 Personal history of other malignant neoplasm of large intestine; Z86.010 Personal history of colon polyps; E11.9 Type 2 diabetes mellitus without complications; K75.81 Nonalcoholic steatohepatitis (NASH); G47.33 Obstructive sleep apnea (adult) (pediatric); F17.210 Nicotine dependence, cigarettes, uncomplicated; I10 Essential (primary) hypertension; Z79.899 Other long term (current) drug therapy; Z79.4 Long term (current) use of insulin
CPT/HCPCS: 82947; 88305; J2704; J7120

== ENCOUNTER 2021-10-28 16:19 | Inpatient (IN) | payer OTHER ==
[~2021-10-28] VITALS: Ht 190.5 cm; Wt 110.5 kg
[~2021-10-28 16:19] MED LIST changes: -AMLO10; -ATOR40TA; +ATOR40TA PO; -DULO30; +DULO30 PO; -FENO54; +FENO54 PO; +FURO20 PO; -HYDCHL25; +HYDCHL25 PO; +INSULANPEN SC; +OLAN10 PO; -OLAN7.5; -OMEP20ER; +OMEP20ER PO; -OXYC10TA19; -POTA10T; +POTA10T PO; -Robaxin750 MG; +Robaxin750 MG PO; +TRAZ100 PO
[2021-10-28 17:05] LABS: Albumin, Blood 3.7 g/dL (3.4-5.0); Albumin/Globulin Ratio 1.2 (0.8-1.8); BASOPHILS ABSOLUTE AUTO 0.04 K/mm3 (0.00-0.23); BASOPHILS PERCENT AUTO 1 % (0-2); Bilirubin, Direct 0.2 mg/dL (0.0-0.3); Bilirubin, Indirect 0.9 mg/dL (0.1-0.7); Bilirubin, Total 1.1 mg/dL (0.1-1.0); Bun/Creatinine Ratio 14.7 (12.0-20.0); Calcium, Blood 9.3 mg/dL (8.5-10.1); Creatinine, Blood 1.56 mg/dL (0.60-1.20); EOSINOPHILS ABSOLUTE AUTO 0.02 K/mm3 (0.00-0.68); EOSINOPHILS PERCENT AUTO 0 % (0-6); Globulin, Blood 3.1 g/dL (2.2-4.0); Hematocrit 43.6 % (37.0-53.0); Hemoglobin 14.6 g/dL (13.5-17.5); IMMATURE GRAN ABSOLUTE AUTO 0.08 K/mm3 (0.00-0.10); IMMATURE GRAN PERCENT AUTO 1 % (0-1); LYMPHOCYTES ABSOLUTE AUTO 0.85 K/mm3 (0.84-5.20); LYMPHOCYTES PERCENT AUTO 11 % (21-46); MONOCYTES ABSOLUTE AUTO 0.29 K/mm3 (0.16-1.47); MONOCYTES PERCENT AUTO 4 % (4-13); Magnesium, Blood 1.7 mg/dL (1.6-2.4); Mean Corpuscular HGB 28.4 pg (26.0-34.0); Mean Corpuscular HGB Conc 33.5 g/dL (31.5-36.5); Mean Corpuscular Volume 85 fL (80-100); Mean Platelet Volume 10.6 fL (9.1-12.4); NEUTROPHILS PERCENT AUTO 83 % (41-73); NRBC ABSOLUTE 0.03 K/mm3 (0.00-0.02); NRBC Auto 0.4 /100 WBC (0.0-0.2); Platelet Count 144 K/mm3 (150-400); Potassium, Blood 4.3 mmol/L (3.5-5.5); RDW Coefficient Variation 13.2 % (11.7-14.2); RDW Standard Deviation 41.1 fL (35.1-46.3); Red Blood Cell Count 5.14 M/mm3 (4.30-5.90); Total Protein, Blood 6.8 g/dL (6.4-8.2); White Blood Cell Count 7.48 K/mm3 (4.00-11.30)
[2021-10-28 17:52] LABS: Influenza A, PCR NEGATIVE (NEGATIVE); Influenza B, PCR NEGATIVE (NEGATIVE); Resp Syncytial Virus, PCR NEGATIVE (NEGATIVE); SARS-Cov-2 (COVID-19) PCR, MMC NEGATIVE (NEGATIVE)
[2021-10-28 18:51] LABS: Source, Urine Foley catheter
[2021-10-28 18:55] LABS: Appearance, Urine Clear (Clear); Bilirubin, Urine Neg (Neg); Blood, Urine Neg (Neg); Color, Urine Yellow (P-Yellow); Glucose Qualitative, Urine Neg (Neg); Ketones, Urine Neg (Neg); Leukocyte Esterase, Urine 1+ (Neg); Nitrite, Urine Neg (Neg); Protein, Urine 2+ (Neg); Urobilinogen, Urine NORM (Normal)
[2021-10-28] MEDS ORDERED: CATAPRES0.2 M1 PO (19:06)
[2021-10-28] MEDS ORDERED: BASAGLAR K100 UNIT/1 SC (19:09)
[2021-10-28 19:20] LABS: U Amphetamine Screen Not Detected; U Barbituate Screen Not Detected; U Benzodiazapine Screen Not Detected; U Buprenorphine Screen Not Detected; U Cannabinoids Screen Not Detected; U Cocaine Screen Not Detected; U Methadone Screen Not Detected; U Methamphetamine Screen Not Detected; U Opiates Screen Not Detected; U Oxycodone Screen DETECTED; U Phencyclidine Screen Not Detected; U Propoxyphene Screen Not Detected
[2021-10-28 19:29] LABS: Bacteria Few /hpf; Red Blood Cells, Urine 0-2 /hpf (0-2); Squamous Epithelial Cells Few /hpf (Few); White Blood Cells, Urine 0-2 /hpf (0-5)
[2021-10-28 22:56] LABS: Appearance, CSF Clear (Clear); Color, CSF No Color (No Color); RBC Count, CSF 10 /mm3 (0-0); WBC Count, CSF 0 /mm3 (0-5)
[2021-10-28 22:58] LABS: Glucose, CSF 118 mg/dL (40-70)
[2021-10-28 23:03] LABS: Appearance, CSF Clear (Clear); Color, CSF No Color (No Color)
[2021-10-28 23:04] LABS: RBC Count, CSF 96 /mm3 (0-0); WBC Count, CSF 1 /mm3 (0-5)
[2021-10-29 00:05] LABS: Cryptococcus Neoformans/Gattii Not Detected (NOT DETECT); Enterovirus Not Detected (NOT DETECT); Escherichia Coli K1 Not Detected (NOT DETECT); Haemophilus Influenza Not Detected (NOT DETECT); Herpes Simplex Virus 1 Not Detected (NOT DETECT); Herpes Simplex Virus 2 Not Detected (NOT DETECT); Human Herpesvirus 6 Not Detected (NOT DETECT); Human Parechovirus Not Detected (NOT DETECT); Listeria Monocytogenes Not Detected (NOT DETECT); Neisseria Meningitidis Not Detected (NOT DETECT); Streptococcus Agalactiae Not Detected (NOT DETECT); Streptococcus Pneumoniae Not Detected (NOT DETECT); Varicella Zoster Virus Not Detected (NOT DETECT)
--- NOTE | 2021-10-29 03:41 | NUR ---
PE STUDY COMPLETED VRAD HARD COPY RESULT FOR PE STUDY IS NOW IN THE FRONT OF THE CHART. I AM INFORMED THAT DRAGAN'S OWN RADIOLOGIST WILL READ THE REPORT LATER THIS MORNING AND ENTER RESULTS INTO BDA.
--- NOTE | 2021-10-29 04:37 | NUR ---
SHIFT SUMMARY PT ARRIVED AT THE UNIT AT APPROX 0015 FROM THE ED. PT HAD DIZZYNESS, CONFUSION AND WEAKNESS EARLIER IN THE DAY AND WAS BROUGHT TO THE ED WHERE HE WAS DIAGNOSED WITH SEPSIS. PT HAD A 103.2 TEMP IN THE ED WHERE HE RECEIVED 4L NS AND IV ABX. PT HAS A GRANT AND AN OSTOMY BAG IN PLACE, BOTH WNL. HE IS TACHY AROUND 110 AND NOT ON TELEMETRY. AROUND 0400 PT C/O OF CHILLS AND WE MEASURED AN ORAL TEMP OF 101.8, BLANKETS WERE REMOVED AND HE WAS GIVEN PRN TYLENOL. PT WENT IN FOR A PE STUDY WHERE THEY ALSO FOUND A LARGE MASS ON HIS THYROID. PT HAS DM2 AND A DIABETIC ULCER ON HIS R 2ND TOE. PT IS RUNNING NS AT 75 AND HAS SCHEDULE ANTIBIOTICS. PT FREQ C/O OF BILATERAL HIP PAIN AND BACK PAIN AND IS MEDICATED PER EMAR. NO ACUTE EVENTS T/O SHIT, PT AOX4, PLEASANT AND COOPERATIVE WITH CARE.
[2021-10-29 05:33] LABS: BASOPHILS ABSOLUTE AUTO 0.02 K/mm3 (0.00-0.23); BASOPHILS PERCENT AUTO 0 % (0-2); EOSINOPHILS PERCENT AUTO 0 % (0-6); Hematocrit 35.8 % (37.0-53.0); Hemoglobin 11.8 g/dL (13.5-17.5); IMMATURE GRAN ABSOLUTE AUTO 0.02 K/mm3 (0.00-0.10); IMMATURE GRAN PERCENT AUTO 0 % (0-1); LYMPHOCYTES ABSOLUTE AUTO 0.62 K/mm3 (0.84-5.20); LYMPHOCYTES PERCENT AUTO 9 % (21-46); MONOCYTES ABSOLUTE AUTO 0.47 K/mm3 (0.16-1.47); MONOCYTES PERCENT AUTO 7 % (4-13); Mean Corpuscular HGB 28.7 pg (26.0-34.0); Mean Corpuscular Volume 87 fL (80-100); Mean Platelet Volume 10.5 fL (9.1-12.4); NEUTROPHILS ABSOLUTE AUTO 5.86 K/mm3 (1.96-9.15); NEUTROPHILS PERCENT AUTO 84 % (41-73); Platelet Count 110 K/mm3 (150-400); RDW Coefficient Variation 13.5 % (11.7-14.2); RDW Standard Deviation 42.7 fL (35.1-46.3); Red Blood Cell Count 4.11 M/mm3 (4.30-5.90); White Blood Cell Count 6.99 K/mm3 (4.00-11.30)
[2021-10-29 06:02] LABS: Magnesium, Blood 1.5 mg/dL (1.6-2.4)
[2021-10-29 06:03] LABS: Anion Gap 9 mmol/L (6-16); Blood Urea Nitrogen 18 mg/dL (8-24); Bun/Creatinine Ratio 15.9 (12.0-20.0); CO2, Blood 22 mmol/L (21-32); Chloride, Blood 110 mmol/L (98-108); Creatinine, Blood 1.13 mg/dL (0.60-1.20); Glomerular Filtration Rate 73 (60-); Glucose, Blood 212 mg/dL (70-99); Potassium, Blood 3.3 mmol/L (3.5-5.5); Sodium, Blood 141 mmol/L (136-145)
--- NOTE | 2021-10-29 07:36 | NUR ---
ASSUMED CARE: PT RESTING IN BED. 3L NC. STATES BILATERAL HIP PAIN LAST COUPLE OF MONTHS AFTER A FALL THAT HAD NOT BEEN FOLLOWED UP ON. WILL DISCUSS WITH DR WHEN THEY ROUND. PT WITH GRANT FOR RETENTION AND LLQ COLOSTOMY. DENIES FURTHER NEEDS OR CONCERNS AT THIS TIME.
--- NOTE | 2021-10-29 08:37 | NUR ---
DR CABA CAME TO SEE PT AND IS AWARE OF PT'S C/O HIP PAIN AFTER FALL 2 MONTHS AGO WITH NO FOLLOW UP. DR VISUALIZED PT'S TOE THAT IS RED WITH SCAB ON THE UNDERSIDE. NO NEW ORDERS AT THIS TIME.
[2021-10-29] MEDS ORDERED: NOVOLOG100 UNIT/3 SC (11:43)
[2021-10-29] MEDS ORDERED: INSULIN AS100 UNIT/8 SC (11:44)
[2021-10-29] MEDS ORDERED: PREG150 PO (11:45)
[2021-10-29] MEDS ORDERED: Flonase 0.05% N16 GM (11:45)
[2021-10-29] MEDS ORDERED: Vitamin B-12100 MCG PO (11:46)
[2021-10-29] MEDS ORDERED: ALBU90OI INH (11:48)
[2021-10-29] MEDS ORDERED: DOCU100 PO (11:49)
[2021-10-29] MEDS ORDERED: Mucus Relief400 MG PO (11:49)
[2021-10-29] MEDS ORDERED: ONDA4 PO (11:50)
--- NOTE | 2021-10-29 14:08 | NUR ---
SPOKE WITH DR CAST REGARDING PT'S BLOOD CX AND C/O PAIN. ORDERED NEW PAIN MEDICATIONS. STATES PT CAN HAVE EXTRA DOSE OF PAIN MED X1. PT AWARE AND AGREEABLE. ASKED FOR THE EXTRA DOSE OF OXY, SEE EMAR
--- NOTE | 2021-10-29 14:39 | NUR ---
Spiritual care visit conducted. Pt is lying in bed and alert. Pt tells me about his medical problems and how they are affecting him emotionally. Pt is tearful and times as he talks about his love for God and how much his Denominational dannie means to him especially in challenging times. Pt is encouraged by conversation centered around his dannie. I encourage self-care, normalize his experience and provide therapeutic listening, pastoral eap counselor and prayer. Pt responds well and shows signs of being encouraged in his dannie.
--- NOTE | 2021-10-29 18:39 | NUR ---
SHIFT SUMMARY: MEDICATED FREQUENTLY FOR PAIN THIS SHIFT. CHANGED ANTIBIOTICS DUE TO BLOOD CULTURES. XRAY OF RIGHT FOOT COMPLETED. MED LIST UPDATED. NO ACUTE NEEDS OR CONCERNS AT THIS TIME.
--- NOTE | 2021-10-30 04:33 | NUR ---
SHIFT SUMMARY MEDICATED FREQUENTLY FOR PAIN WHICH IS MOSTLY IN HIS HIPS. PT C/O WITHDRAWAL SYMPTOMS INCLUDING FULL BODY PAIN, SNEEZING AND NAUSEA. PT STATES WITHDRAWAL IS DUE TO HIS OXYCODONE DOSE BEING 5MG Q4 INSTEAD OF 10MG Q4 WHICH HE IS USED TO. DAY SHIFT DOCTOR WAS ASKED FOR A HIGHER DOSE, AND THE DOCTOR ORDERED 5MG EXTRA ONE TIME. PT'S SYMPTOMS IMPROVED T/O THE NIGHT, BUT HE DID EXPERIENCE INSOMNIA. IVF INFUSING AND IV ABX ADMINISTERED. NO ACUTE CHANGES, VSS, PT PLEASANT AND COOPERATIVE WITH CARE.
--- NOTE | 2021-10-30 04:40 | NUR ---
SHIFT SUMMARY PT FINISHED INFUSION OF IV FAT EMULSION, IV CLINIMEX IS INFUSING, IV ABX WERE ADMINISTERED. NO ADVERSE REACTIONS. NO C/O PAIN OR DISCOMFORT, PT SLEPT COMFORTABLY. PT RESIGHINI AND COMMUNICATION IS DIFFICULT. NO ACUTE EVENTS, VSS, PT PLEASANT AND COOPERATIVE WITH CARE.
[2021-10-30 07:53] LABS: BASOPHILS ABSOLUTE AUTO 0.02 K/mm3 (0.00-0.23); BASOPHILS PERCENT AUTO 1 % (0-2); EOSINOPHILS ABSOLUTE AUTO 0.06 K/mm3 (0.00-0.68); EOSINOPHILS PERCENT AUTO 2 % (0-6); Hematocrit 37.4 % (37.0-53.0); Hemoglobin 12.4 g/dL (13.5-17.5); IMMATURE GRAN ABSOLUTE AUTO 0.02 K/mm3 (0.00-0.10); IMMATURE GRAN PERCENT AUTO 1 % (0-1); LYMPHOCYTES ABSOLUTE AUTO 0.88 K/mm3 (0.84-5.20); LYMPHOCYTES PERCENT AUTO 21 % (21-46); MONOCYTES ABSOLUTE AUTO 0.48 K/mm3 (0.16-1.47); MONOCYTES PERCENT AUTO 12 % (4-13); Mean Corpuscular HGB 28.3 pg (26.0-34.0); Mean Corpuscular HGB Conc 33.2 g/dL (31.5-36.5); Mean Corpuscular Volume 85 fL (80-100); Mean Platelet Volume 10.5 fL (9.1-12.4); NEUTROPHILS ABSOLUTE AUTO 2.66 K/mm3 (1.96-9.15); NEUTROPHILS PERCENT AUTO 64 % (41-73); Platelet Count 100 K/mm3 (150-400); RDW Standard Deviation 40.5 fL (35.1-46.3); Red Blood Cell Count 4.38 M/mm3 (4.30-5.90); White Blood Cell Count 4.12 K/mm3 (4.00-11.30)
[2021-10-30 08:03] LABS: Bilirubin, Total 0.7 mg/dL (0.1-1.0); Bun/Creatinine Ratio 12.2 (12.0-20.0); Calcium, Blood 8.7 mg/dL (8.5-10.1); Creatinine, Blood 0.9 mg/dL (0.60-1.20); Potassium, Blood 3.6 mmol/L (3.5-5.5)
--- NOTE | 2021-10-30 16:33 | NUR ---
SHIFT SUMMARY PATIENT IS ALERT AND ORIENTED X4. PATIENT HAS BEEN ON BEDREST ALL SHIFT. PATIENT HAS A COLOSTOMY WHICH HAS BEEN BURPED MULTIPLE TIMES. GRANT IS PATENT AND DRAINING TO GRAVITY. PATIENT HAS HAD NO ACUTE EVENTS THIS SHIFT. VITAL SIGNS REVIEWED. PATIENT HAS RECEIVED PAIN MEDS X4. PATIENT HAS HAD NO COMPLAINTS OF NAUSEA, VOMITTING, OR SOB THIS SHIFT.
--- NOTE | 2021-10-30 17:45 | NUR ---
UPDATE ASSUMED CARE OF PATIENT AT 1700. PATIENT DENIES PAIN FOR THIS RN. PATIENT DENIES NAUSEA AND SHORTNESS OF BREATH. GRANT IS PATENT AND DRAINING TO GRAVITY. OSTOMY INTACT WITH GOOD OUTPUT. PATIENT ATE DINNER WELL. PATIENT DRINKING WELL. PT AND OT ORDERED. PATIENT CURRENTLY BEDREST. PATIENT IS PLEASANT AND COOPERATIVE WITH CARE. WILL CONTINUE TO MONITOR UNTIL NIGHTSHIFT AT 1900.
[2021-10-30] MEDS ORDERED: [UNRECOGNIZED DRUG - OTHER] TOP (22:13)
[2021-10-30] MEDS ORDERED: LOTRIMIN 2% TOP (22:15)
[2021-10-30] MEDS ORDERED: B-121000 MC3 PO (22:17)
[2021-10-30] MEDS ORDERED: THERA-D2000 UNIT PO (22:18)
[2021-10-30] MEDS ORDERED: DULO60 PO (22:25)
[2021-10-30] MEDS ORDERED: DULCOLAX400 MG/5 M PO (22:29)
[2021-10-30] MEDS ORDERED: [UNRECOGNIZED DRUG - OTHER] TOP (22:30)
[2021-10-30] MEDS ORDERED: LOPE2C PO (22:32)
[2021-10-30] MEDS ORDERED: NARCAN4 M1 (22:35)
[2021-10-30] MEDS ORDERED: NYSTATIN15 GM TOP (22:35)
--- NOTE | 2021-10-31 04:36 | NUR ---
SHIFT SUMMARY 61 YR M ADMITTED ON 10/29/21 FOR SEPSIS. FULL CODE. PT C/O PAIN IN HIS BACK AT A LEVEL OF 8. HE IS REQUIRING PAIN MEDS PER EMAR Q4 TO CONTROL HIS PAIN. HE STATES THAT HE MAY BE GETTING CONSTIPATED HE HAS ONLY CHANGED HIS OSTOMY BAG ONCE IN THE LAST 2 DAYS. NS RUNNING @ 75 ML/HR. NO ACUTE CHANGES THIS SHIFT. PT IS PLEASANT AND COOPERATIVE WITH CARE.
[2021-10-31 08:46] LABS: Albumin/Globulin Ratio 0.9 (0.8-1.8); Bilirubin, Total 0.7 mg/dL (0.1-1.0); Bun/Creatinine Ratio 16.6 (12.0-20.0); Calcium, Blood 8.8 mg/dL (8.5-10.1); Creatinine, Blood 0.84 mg/dL (0.60-1.20); Globulin, Blood 3.5 g/dL (2.2-4.0); Potassium, Blood 3.8 mmol/L (3.5-5.5); Total Protein, Blood 6.5 g/dL (6.4-8.2)
[2021-10-31 09:27] LABS: BASOPHILS ABSOLUTE AUTO 0.02 K/mm3 (0.00-0.23); BASOPHILS PERCENT AUTO 0 % (0-2); EOSINOPHILS ABSOLUTE AUTO 0.09 K/mm3 (0.00-0.68); EOSINOPHILS PERCENT AUTO 2 % (0-6); Hemoglobin 13.5 g/dL (13.5-17.5); IMMATURE GRAN ABSOLUTE AUTO 0.02 K/mm3 (0.00-0.10); IMMATURE GRAN PERCENT AUTO 0 % (0-1); LYMPHOCYTES ABSOLUTE AUTO 1.18 K/mm3 (0.84-5.20); LYMPHOCYTES PERCENT AUTO 26 % (21-46); MONOCYTES PERCENT AUTO 11 % (4-13); Mean Corpuscular HGB 28.7 pg (26.0-34.0); Mean Corpuscular HGB Conc 34.6 g/dL (31.5-36.5); Mean Corpuscular Volume 83 fL (80-100); Mean Platelet Volume 10.7 fL (9.1-12.4); NEUTROPHILS PERCENT AUTO 60 % (41-73); Platelet Count 138 K/mm3 (150-400); RDW Coefficient Variation 12.9 % (11.7-14.2); RDW Standard Deviation 39.5 fL (35.1-46.3); White Blood Cell Count 4.51 K/mm3 (4.00-11.30)
--- NOTE | 2021-10-31 11:00 | NUR ---
RN changed pt's ostomy appliance and bag.
--- NOTE | 2021-10-31 14:50 | NUR ---
PHONE CALL TO DR. KEITH, COVERING FOR DR. CABA: REPORTING PT'S CONTINUED HIGH BLOOD PRESSURE OF 176/109. DR. BEAULIEU STATED SHE WOULD UPDATE ORDERS IN THE COMPUTER TO ADDRESS BP.
--- NOTE | 2021-10-31 18:14 | NUR ---
PHONE CALL PLACED TO DR. CABA TO REPORT THAT PT CONTINUES WITH HIGH BLOOD PRESSURE. DR. CABA WITH ORDERS FOR APRESOLINE 20MG Q 4 HRS, FOR SYSTOLIC BLOOD PRESSURE GREATER THAN 160. RN TO UPDATE MED ORDERS.
--- NOTE | 2021-10-31 19:44 | NUR ---
PT HAD HIGH BLOOD PRESSURE 170'S/100 THROUGH OUT SHIFT, RECEIVED ORDERS FROM DR. CABA FOR PRN MEDICATION OF APRESOLINE 20MG Q 4HRS. PT REPORTING PAIN THAT IS NOT WELL CONTROLLED WITH CURRENT PAIN MANAGMENET. HE IS A CHRONIC PAIN PT. NORMAL SALINE INFUSING AT 75MLS/HR INTO LEFT HAND IV. ROOM AIR. CHRONIC GRANT. COLOSTOMY SITE CHANGED TODAY BY RN. NO ACUTE CHANGES. PT ON BEDREST. DIDNOT RECEIVE PT EVAL DUE TO HIGH BLOOD PRESSURE.
--- NOTE | 2021-11-01 06:18 | NUR ---
SEO STRATEGIST SUMMARY A/OX4. PT AWAKE INTERMITTANTLY T/O THE NIGHT. PT COMPLAINED OF NAUSEA AND VOMITTED ONE TIME; APROX 150MLS. PT SAID HIS STOMACH FELT UPSET AND THOUGHT IT COULD BE THE CHICKEN HE HAD FOR DINNER OR THE TYLENOL NOT SITTING WELL ON HIS STOMACH. CALLED THE DR AND INCREASED ZOFRAN TO Q4HRS. GAVE TWO DOSES. PT IS CONTINUING TO HAVE ELEVATED SPB OVER 160. ADMINISTERED APRESOLINE TWICE. PT EXPRESSED A DESIRE TO WORK WITH OT/PT TODAY. PT HAVING GAS BUT LITTLE STOOL OUTPUT IN THE OSTOMY. NS CONTINUOUS FLUID RUNNING AT 75 MLS/HR. CALL LIGHT IN REACH.
[2021-11-01 07:52] LABS: BASOPHILS ABSOLUTE AUTO 0.02 K/mm3 (0.00-0.23); BASOPHILS PERCENT AUTO 0 % (0-2); EOSINOPHILS ABSOLUTE AUTO 0.01 K/mm3 (0.00-0.68); EOSINOPHILS PERCENT AUTO 0 % (0-6); Hematocrit 41.3 % (37.0-53.0); Hemoglobin 14.1 g/dL (13.5-17.5); IMMATURE GRAN ABSOLUTE AUTO 0.04 K/mm3 (0.00-0.10); IMMATURE GRAN PERCENT AUTO 1 % (0-1); LYMPHOCYTES ABSOLUTE AUTO 1.31 K/mm3 (0.84-5.20); LYMPHOCYTES PERCENT AUTO 16 % (21-46); MONOCYTES ABSOLUTE AUTO 0.57 K/mm3 (0.16-1.47); MONOCYTES PERCENT AUTO 7 % (4-13); Mean Corpuscular HGB 28.3 pg (26.0-34.0); Mean Corpuscular HGB Conc 34.1 g/dL (31.5-36.5); Mean Corpuscular Volume 83 fL (80-100); Mean Platelet Volume 10.1 fL (9.1-12.4); NEUTROPHILS PERCENT AUTO 76 % (41-73); Platelet Count 187 K/mm3 (150-400); RDW Standard Deviation 39.3 fL (35.1-46.3); Red Blood Cell Count 4.98 M/mm3 (4.30-5.90); White Blood Cell Count 8.15 K/mm3 (4.00-11.30)
[2021-11-01 08:10] LABS: Bun/Creatinine Ratio 24.7 (12.0-20.0); Calcium, Blood 9.1 mg/dL (8.5-10.1); Creatinine, Blood 0.69 mg/dL (0.60-1.20); Potassium, Blood 3.8 mmol/L (3.5-5.5)
--- NOTE | 2021-11-01 17:37 | NUR ---
SHIFT SUMMARY HAS VOIDED SEVERAL SINCE GRANT REMOVED. BLADDER SCANNED AND NO URINE OBSERVED. MEDICATED FOR LEG PAIN TWICE. AMBULATED TO GYM WITH P.T. THIS AFTERNOON USING A FWW. BROWN COW GIVEN THIS EVENING FOR CONTINUED NO BM IN OSTOMY BAG. PT HAS BEEN BURPING HIMSELF. NO ABDOMENAL DISTENTION NOTED.
--- NOTE | 2021-11-02 04:51 | NUR ---
SHIFT SUMMARY NO ACUTE CHANGES OVERNIGHT. PT AOX4. VOIDING SMALL AMOUNTS T/O SHIFT. PT REPORTS NEUROPATHY ON BLE. PT GETS UP ON SIDE OF BED TO VOID, AND USE URINAL INDEPENDENTLY. VSS. MILDLY HYPERTENSIVE. PT HAS OSTOMY BUT NO OUTPUT. PT MANAGED TO BURP THE OSTOMY BAG HIMSELF. STOOL SOFTNER GIVEN LAST NIGHT. SALINE LOCKED. CALL LIGHT WITHIN REACH. WILL PROVIDE REPORT TO ONCOMING NURSE.
[2021-11-02 05:17] LABS: BASOPHILS ABSOLUTE AUTO 0.05 K/mm3 (0.00-0.23); BASOPHILS PERCENT AUTO 1 % (0-2); EOSINOPHILS ABSOLUTE AUTO 0.09 K/mm3 (0.00-0.68); EOSINOPHILS PERCENT AUTO 1 % (0-6); Hematocrit 39.5 % (37.0-53.0); Hemoglobin 13.8 g/dL (13.5-17.5); IMMATURE GRAN ABSOLUTE AUTO 0.07 K/mm3 (0.00-0.10); IMMATURE GRAN PERCENT AUTO 1 % (0-1); LYMPHOCYTES ABSOLUTE AUTO 1.82 K/mm3 (0.84-5.20); LYMPHOCYTES PERCENT AUTO 21 % (21-46); MONOCYTES ABSOLUTE AUTO 0.81 K/mm3 (0.16-1.47); MONOCYTES PERCENT AUTO 9 % (4-13); Mean Corpuscular HGB 28.6 pg (26.0-34.0); Mean Corpuscular HGB Conc 34.9 g/dL (31.5-36.5); Mean Corpuscular Volume 82 fL (80-100); Mean Platelet Volume 10.1 fL (9.1-12.4); NEUTROPHILS ABSOLUTE AUTO 5.84 K/mm3 (1.96-9.15); NEUTROPHILS PERCENT AUTO 67 % (41-73); Platelet Count 179 K/mm3 (150-400); RDW Coefficient Variation 13.1 % (11.7-14.2); RDW Standard Deviation 38.9 fL (35.1-46.3); Red Blood Cell Count 4.83 M/mm3 (4.30-5.90); White Blood Cell Count 8.68 K/mm3 (4.00-11.30)
[2021-11-02 05:44] LABS: Bun/Creatinine Ratio 22.9 (12.0-20.0); Calcium, Blood 9.2 mg/dL (8.5-10.1); Creatinine, Blood 0.74 mg/dL (0.60-1.20); Potassium, Blood 3.7 mmol/L (3.5-5.5)
--- NOTE | 2021-11-02 13:49 | NUR ---
DR. YOO NOTIFIED BY PHONE OF CLEAR YELLOW LIQUID IN PATIENT'S OSTOMY BAG. DR. YOO SAID HE WILL LOOK INTO ORDERING MORE BOWEL CARE MEDS. DR. YOO NOTIFED THAT THE PATIENT DOES NOT FEEL COMFORTABLE IN DISCHARGING BEFORE HE HAS A BM
--- NOTE | 2021-11-02 16:34 | NUR ---
Pt has not had a BM since admitting to [facility]. He has an ostomy, states the longest he goes between BM's is 2 days usually. However, it's been 4 days since a BM, and instead he is putting out light yellow, thin liquid that is similar in appearance to urine. Unsure of what it is though. He has had approx 1/2 cup of output today. He continues to feel nauseous and reports vomiting "a couple times a day". MD is aware, and pt's d/c is on hold because of this. Unsure of MD's plan at this point. Pt is happy to have palliative visits, and agreeable to continue with them at this time. Plan to make a supportive visit daily for now.
--- NOTE | 2021-11-02 19:21 | NUR ---
PATIENT IS ALERT AND ORIENTED AND COOPERATIVE WITH CARE. NO BOWEL MOVEMENT TODAY. BOWEL CARE MEDS GIVEN PER EMAR. DR. YOO AND DR. CAST NOTIFIED OF CLEAR YELLOW FLUID IN OSTOMY BAG. PAIN MANAGED PER EMAR. PLAN IS TO DC HOME ONCE PATIENT HAS A BM. REPORT GIVEN TO ONCOMING RN.
--- NOTE | 2021-11-03 04:40 | NUR ---
SHIFT SUMMARY DAY SHIFT REPORTED PT HAD NOT HAD A BM IN 3 DAYS AND COULD NOT DISCHARGED UNTIL HE DID HAVE A BM BECAUSE HE HAS AN OSTOMY. PT HAD A BM AROUND 2200 WHICH FILLED OVER HALF HIS OSTOMY BAG WHICH WAS CHANGED. C/O INSOMNIA FOR 5 DAYS AND THEN PT FELL ALSEEP AROUND 2300 AND HAS BEEN SLEEPING COMFORTABLY SINCE. NO ACUTE CHANGES, VSS.
--- NOTE | 2021-11-03 13:44 | NUR ---
LATE ENTRY/DC HOME PT DC'D TO HOME VIA W/C WITH [facility]. PIV DC'D WITH CATH TIP INATCT, NO REDNESS OR SWELLING NOTED AT SITE. PT DRESSED IN STREET CLOTHES, HAIR BRAIDED. DC PKT GIVEN TO TRANSPORT PERSONNEL. PT HOME WITH ALL PERSONAL BELONGINGS.
== END 2021-11-03 12:10 | disposition home or self-care (01) | DRG 871 ==
LOC: ER 16:19 → MEDS 10-29 00:01
PROVIDERS: Family Medicine; Student in an Organized Health Care Education/Training Program; ADMIT Internal Medicine
DX: A41.51 Sepsis due to Escherichia coli [E. coli] (principal); G93.41 Metabolic encephalopathy; N17.9 Acute kidney failure, unspecified; Z20.822 Contact with and (suspected) exposure to COVID-19; F17.200 Nicotine dependence, unspecified, uncomplicated; R65.20 Severe sepsis without septic shock; G89.29 Other chronic pain; I12.9 Hypertensive chronic kidney disease with stage 1 through stage 4 chronic kidney disease, or unspecified chronic kidney disease; E11.22 Type 2 diabetes mellitus with diabetic chronic kidney disease; N18.9 Chronic kidney disease, unspecified; F31.9 Bipolar disorder, unspecified; K59.00 Constipation, unspecified; G47.00 Insomnia, unspecified; R09.02 Hypoxemia; Z98.890 Other specified postprocedural states; Z88.8 Allergy status to other drugs, medicaments and biological substances; Z79.4 Long term (current) use of insulin; Z79.899 Other long term (current) drug therapy
CPT/HCPCS: 0241U; 36415; 51702; 62270; 70450; 71045; 71260; 73660; 80048; 80053; 80069; 81001; 82248; 82945; 82947; 83605; 83735; 84145; 84157; 85025; 87040; 87070; 87076; 87077; 87086; 87185; 87186; 87205; 87483; 89051; 93005; 93010; 96365-59; 96366-59; 96367-59; 96375-59; 97110; 97116; 97161; 97166; 97530; 99285-25; A9270; J0295; J0360; J0610; J0696; J1200; J1650; J1815; J2405; J2543; J2765; J3370; J3480; J7030; J7050; Q9967

== ENCOUNTER → 2022-03-22 | Outpatient (CLI) | payer OTHER ==
[~2022-03-22] MED LIST changes: +ALBU90OI INH; +B-121000 MC3 PO; +BASAGLAR K100 UNIT/1 SC; +CATAPRES0.2 M1 PO; +DULCOLAX400 MG/5 M PO; +Flonase 0.05% N16 GM; +INSULIN AS100 UNIT/8 SC; +LOPE2C PO; +LOTRIMIN 2% TOP; +Mucus Relief400 MG PO; +NARCAN4 M1; +NOVOLOG100 UNIT/3 SC; +NYSTATIN15 GM TOP; +ONDA4 PO; +PREG150 PO; +Vitamin B-12100 MCG PO; +[UNRECOGNIZED DRUG - OTHER] TOP; +[UNRECOGNIZED DRUG - OTHER] TOP
== END | disposition home or self-care (01) ==
LOC: LAB 11:23 → LAB SHORT 11:23
DX: L08.0 Pyoderma (principal)
CPT/HCPCS: 87070; 87205

== ENCOUNTER → 2022-05-17 | Outpatient (CLI) | payer OTHER | LOC: LAB 16:27 → LAB SHORT 16:27 | DX: L08.0 Pyoderma (principal) | CPT/HCPCS: 87070; 87205 ==

== ENCOUNTER → 2022-06-28 | Outpatient (CLI) | payer OTHER | END | disposition home or self-care (01) | LOC: LAB 06:55 → LAB SHORT 06:55 | PROVIDERS: Dermatology | DX: L98.9 Disorder of the skin and subcutaneous tissue, unspecified (principal) | CPT/HCPCS: 86803 ==

== ENCOUNTER 2022-08-24 10:23 | Emergency (ER) | payer OTHER ==
[~2022-08-24] VITALS: Ht 190.5 cm; Wt 120.2 kg
[2022-08-24 11:10] LABS: BASOPHILS ABSOLUTE AUTO 0.03 K/mm3 (0.00-0.23); BASOPHILS PERCENT AUTO 0 % (0-2); EOSINOPHILS ABSOLUTE AUTO 0.18 K/mm3 (0.00-0.68); EOSINOPHILS PERCENT AUTO 3 % (0-6); Hematocrit 39.1 % (37.0-53.0); Hemoglobin 12.8 g/dL (13.5-17.5); IMMATURE GRAN ABSOLUTE AUTO 0.02 K/mm3 (0.00-0.10); IMMATURE GRAN PERCENT AUTO 0 % (0-1); LYMPHOCYTES ABSOLUTE AUTO 1.66 K/mm3 (0.84-5.20); LYMPHOCYTES PERCENT AUTO 23 % (21-46); MONOCYTES ABSOLUTE AUTO 0.72 K/mm3 (0.16-1.47); MONOCYTES PERCENT AUTO 10 % (4-13); Mean Corpuscular HGB 28.2 pg (26.0-34.0); Mean Corpuscular HGB Conc 32.7 g/dL (31.5-36.5); Mean Corpuscular Volume 86 fL (80-100); Mean Platelet Volume 10.9 fL (9.1-12.4); NEUTROPHILS ABSOLUTE AUTO 4.55 K/mm3 (1.96-9.15); NEUTROPHILS PERCENT AUTO 64 % (41-73); Platelet Count 193 K/mm3 (150-400); RDW Coefficient Variation 13.2 % (11.7-14.2); RDW Standard Deviation 41.1 fL (35.1-46.3); Red Blood Cell Count 4.54 M/mm3 (4.30-5.90); White Blood Cell Count 7.16 K/mm3 (4.00-11.30)
[2022-08-24 12:20] LABS: Albumin, Blood 3.6 g/dL (3.4-5.0); Albumin/Globulin Ratio 1.3 (0.8-1.8); Bilirubin, Total 0.5 mg/dL (0.1-1.0); Bun/Creatinine Ratio 12.1 (12.0-20.0); Creatinine, Blood 1.41 mg/dL (0.60-1.20); Globulin, Blood 2.7 g/dL (2.2-4.0); Potassium, Blood 4.2 mmol/L (3.5-5.5); Total Protein, Blood 6.3 g/dL (6.4-8.2)
[2022-08-24 12:22] LABS: Source, Urine Clean Catch
[2022-08-24 13:14] LABS: Appearance, Urine Clear (Clear); Bilirubin, Urine Neg (Neg); Blood, Urine Neg (Neg); Color, Urine Yellow (P-Yellow); Glucose Qualitative, Urine Neg (Neg); Ketones, Urine Neg (Neg); Leukocyte Esterase, Urine Neg (Neg); Nitrite, Urine Neg (Neg); Protein, Urine Neg (Neg); Specific Gravity, Urine 1.015 (1.003-1.022); Urobilinogen, Urine NORM (Normal)
[2022-08-24 15:00] VITALS: BP 95/75
== END 2022-08-24 15:54 | disposition home or self-care (01) ==
LOC: ER 10:23
PROVIDERS: Student in an Organized Health Care Education/Training Program
DX: E86.0 Dehydration (principal); R42 Dizziness and giddiness; N17.9 Acute kidney failure, unspecified; Z88.8 Allergy status to other drugs, medicaments and biological substances; Z79.899 Other long term (current) drug therapy; Z79.4 Long term (current) use of insulin; Z79.82 Long term (current) use of aspirin; Z79.84 Long term (current) use of oral hypoglycemic drugs; I10 Essential (primary) hypertension; E11.9 Type 2 diabetes mellitus without complications; F17.210 Nicotine dependence, cigarettes, uncomplicated
CPT/HCPCS: 71046; 80053; 81003; 83735; 83880; 84145; 85025; 93005; 93010; 99285-25; A9270; J7030

== ENCOUNTER 2022-09-08 10:45 | Emergency (ER) | payer OTHER ==
[~2022-09-08] VITALS: Ht 190.5 cm; Wt 77.1 kg
[2022-09-08 12:01] LABS: BASOPHILS ABSOLUTE AUTO 0.03 K/mm3 (0.00-0.23); BASOPHILS PERCENT AUTO 0 % (0-2); EOSINOPHILS ABSOLUTE AUTO 0.09 K/mm3 (0.00-0.68); EOSINOPHILS PERCENT AUTO 1 % (0-6); Hematocrit 37.4 % (37.0-53.0); Hemoglobin 12.2 g/dL (13.5-17.5); IMMATURE GRAN ABSOLUTE AUTO 0.03 K/mm3 (0.00-0.10); IMMATURE GRAN PERCENT AUTO 0 % (0-1); LYMPHOCYTES ABSOLUTE AUTO 0.93 K/mm3 (0.84-5.20); LYMPHOCYTES PERCENT AUTO 9 % (21-46); MONOCYTES ABSOLUTE AUTO 0.93 K/mm3 (0.16-1.47); MONOCYTES PERCENT AUTO 9 % (4-13); Mean Corpuscular HGB 28.4 pg (26.0-34.0); Mean Corpuscular HGB Conc 32.6 g/dL (31.5-36.5); Mean Corpuscular Volume 87 fL (80-100); Mean Platelet Volume 11.1 fL (9.1-12.4); NEUTROPHILS ABSOLUTE AUTO 8.31 K/mm3 (1.96-9.15); NEUTROPHILS PERCENT AUTO 81 % (41-73); Platelet Count 199 K/mm3 (150-400); RDW Coefficient Variation 13.6 % (11.7-14.2); RDW Standard Deviation 42.8 fL (35.1-46.3); White Blood Cell Count 10.32 K/mm3 (4.00-11.30)
[2022-09-08 12:22] LABS: Albumin, Blood 3.2 g/dL (3.4-5.0); Bilirubin, Total 0.8 mg/dL (0.1-1.0); Bun/Creatinine Ratio 11.7 (12.0-20.0); Calcium, Blood 8.7 mg/dL (8.5-10.1); Creatinine, Blood 1.2 mg/dL (0.60-1.20); Globulin, Blood 3.1 g/dL (2.2-4.0); Potassium, Blood 4.6 mmol/L (3.5-5.5); Total Protein, Blood 6.3 g/dL (6.4-8.2)
[2022-09-08] MEDS ORDERED: CEPH500 PO (14:27)
[2022-09-08 15:30] VITALS: BP 124/78
== END 2022-09-08 15:45 | disposition home or self-care (01) ==
LOC: ER 10:45
PROVIDERS: Emergency Medicine
DX: S61.201A Unspecified open wound of left index finger without damage to nail, initial encounter (principal); L08.9 Local infection of the skin and subcutaneous tissue, unspecified; I10 Essential (primary) hypertension; E11.9 Type 2 diabetes mellitus without complications; E66.9 Obesity, unspecified; F17.210 Nicotine dependence, cigarettes, uncomplicated; Z68.21 Body mass index [BMI] 21.0-21.9, adult; Z85.038 Personal history of other malignant neoplasm of large intestine; Z85.048 Personal history of other malignant neoplasm of rectum, rectosigmoid junction, and anus; Z79.4 Long term (current) use of insulin; Z88.8 Allergy status to other drugs, medicaments and biological substances; Z79.84 Long term (current) use of oral hypoglycemic drugs; Z79.899 Other long term (current) drug therapy; X58.XXXA Exposure to other specified factors, initial encounter
CPT/HCPCS: 73140; 80053; 83605; 85025; 93005; 93010; 93971; 96365; 99285-25; A9270; J0696

== ENCOUNTER 2022-10-19 12:33 | Emergency (ER) | payer OTHER ==
[~2022-10-19] VITALS: Ht 190.5 cm; Wt 120.2 kg
[~2022-10-19 12:33] MED LIST changes: +CEPH500 PO
[2022-10-19 12:53] VITALS: BP 147/114
[2022-10-19] MEDS ORDERED: CYCL10 PO (14:39)
== END 2022-10-19 15:09 | disposition home or self-care (01) ==
LOC: ER 12:33
DX: S80.811A Abrasion, right lower leg, initial encounter (principal); S29.012A Strain of muscle and tendon of back wall of thorax, initial encounter; W10.9XXA Fall (on) (from) unspecified stairs and steps, initial encounter; I10 Essential (primary) hypertension; E11.9 Type 2 diabetes mellitus without complications; F17.210 Nicotine dependence, cigarettes, uncomplicated; Z88.8 Allergy status to other drugs, medicaments and biological substances; Z79.899 Other long term (current) drug therapy; Z79.84 Long term (current) use of oral hypoglycemic drugs; Z79.4 Long term (current) use of insulin
CPT/HCPCS: 73590; 96372; 99283-25; A9270; J1885

== ENCOUNTER 2023-02-02 01:12 | Inpatient (IN) | payer OTHER ==
[2023-02-02] VITALS (18 sets, daily range): BP systolic 89–194; BP diastolic 48–112
[~2023-02-02] VITALS: Ht 182.9 cm; Wt 117.9 kg
[~2023-02-02 01:12] MED LIST changes: +CYCL10 PO
[2023-02-02 02:06] LABS: Ethanol (Alcohol), Blood, Med <3 mg/dL; Magnesium, Blood 2.4 mg/dL (1.6-2.4)
[2023-02-02 02:07] LABS: Alanine Aminotransfer (ALT/SGP 15 U/L (12-78); Albumin, Blood 3.2 g/dL (3.4-5.0); Alk Phos 49 U/L (50-136); Anion Gap 7 mmol/L (6-16); Aspartate Aminotrans (AST/SGOT 13 U/L (12-37); Bilirubin, Total 0.4 mg/dL (0.1-1.0); Blood Urea Nitrogen 55 mg/dL (8-24); Bun/Creatinine Ratio 13.6 (12.0-20.0); CO2, Blood 24 mmol/L (21-32); Calcium, Blood 8.4 mg/dL (8.5-10.1); Chloride, Blood 110 mmol/L (98-108); Creatinine, Blood 4.05 mg/dL (0.60-1.20); Globulin, Blood 3.1 g/dL (2.2-4.0); Glomerular Filtration Rate 16 (60-); Glucose, Blood 163 mg/dL (70-99); Phosphorus, Blood 6.3 mg/dL (2.5-4.9); Potassium, Blood 5.2 mmol/L (3.5-5.5); Sodium, Blood 141 mmol/L (136-145); Total Protein, Blood 6.3 g/dL (6.4-8.2)
[2023-02-02 02:21] LABS: BASOPHILS ABSOLUTE AUTO 0.02 K/mm3 (0.00-0.23); BASOPHILS PERCENT AUTO 0 % (0-2); EOSINOPHILS ABSOLUTE AUTO 0.41 K/mm3 (0.00-0.68); EOSINOPHILS PERCENT AUTO 4 % (0-6); Hematocrit 37.6 % (37.0-53.0); IMMATURE GRAN ABSOLUTE AUTO 0.03 K/mm3 (0.00-0.10); IMMATURE GRAN PERCENT AUTO 0 % (0-1); LYMPHOCYTES ABSOLUTE AUTO 2.41 K/mm3 (0.84-5.20); LYMPHOCYTES PERCENT AUTO 23 % (21-46); MONOCYTES ABSOLUTE AUTO 0.77 K/mm3 (0.16-1.47); MONOCYTES PERCENT AUTO 7 % (4-13); Mean Corpuscular HGB 27.5 pg (26.0-34.0); Mean Corpuscular HGB Conc 31.9 g/dL (31.5-36.5); Mean Corpuscular Volume 86 fL (80-100); Mean Platelet Volume 11.2 fL (9.1-12.4); NEUTROPHILS ABSOLUTE AUTO 6.88 K/mm3 (1.96-9.15); NEUTROPHILS PERCENT AUTO 65 % (41-73); Platelet Count 188 K/mm3 (150-400); RDW Coefficient Variation 15.9 % (11.7-14.2); RDW Standard Deviation 49.7 fL (35.1-46.3); Red Blood Cell Count 4.37 M/mm3 (4.30-5.90); White Blood Cell Count 10.52 K/mm3 (4.00-11.30)
[2023-02-02 03:00] LABS: D-Dimer, Quantitative 1.47 mg/L FEU (0.00-0.52); International Normalized Ratio 1.06; Prothrombin Time Results 11.1 Sec (9.7-11.5)
[2023-02-02 03:17] LABS: Base Excess Venous -3.3 mmol/L; Bicarbonate Venous 21.3 mmol/L (24.0-30.0); PCO2 Venous 52.2 mmHg (38-42)
[2023-02-02 03:18] LABS: pH Blood Venous 7.27 (7.34-7.37)
[2023-02-02 05:44] LABS: BASOPHILS ABSOLUTE AUTO 0.04 K/mm3 (0.00-0.23); BASOPHILS PERCENT AUTO 0 % (0-2); EOSINOPHILS ABSOLUTE AUTO 0.43 K/mm3 (0.00-0.68); EOSINOPHILS PERCENT AUTO 3 % (0-6); Hematocrit 38.6 % (37.0-53.0); Hemoglobin 12.2 g/dL (13.5-17.5); IMMATURE GRAN ABSOLUTE AUTO 0.06 K/mm3 (0.00-0.10); IMMATURE GRAN PERCENT AUTO 0 % (0-1); LYMPHOCYTES ABSOLUTE AUTO 1.99 K/mm3 (0.84-5.20); LYMPHOCYTES PERCENT AUTO 15 % (21-46); MONOCYTES ABSOLUTE AUTO 0.92 K/mm3 (0.16-1.47); MONOCYTES PERCENT AUTO 7 % (4-13); Mean Corpuscular HGB 26.9 pg (26.0-34.0); Mean Corpuscular HGB Conc 31.6 g/dL (31.5-36.5); Mean Corpuscular Volume 85 fL (80-100); Mean Platelet Volume 10.2 fL (9.1-12.4); NEUTROPHILS ABSOLUTE AUTO 10.12 K/mm3 (1.96-9.15); NEUTROPHILS PERCENT AUTO 75 % (41-73); Platelet Count 167 K/mm3 (150-400); RDW Coefficient Variation 15.9 % (11.7-14.2); RDW Standard Deviation 49.8 fL (35.1-46.3); Red Blood Cell Count 4.54 M/mm3 (4.30-5.90); White Blood Cell Count 13.56 K/mm3 (4.00-11.30)
[2023-02-02 06:00] LABS: Albumin, Blood 3.3 g/dL (3.4-5.0); Bilirubin, Total 0.4 mg/dL (0.1-1.0); Bun/Creatinine Ratio 15.4 (12.0-20.0); Calcium, Blood 8.6 mg/dL (8.5-10.1); Creatinine, Blood 3.58 mg/dL (0.60-1.20); Globulin, Blood 3.3 g/dL (2.2-4.0); Potassium, Blood 5.2 mmol/L (3.5-5.5); Total Protein, Blood 6.6 g/dL (6.4-8.2)
--- NOTE | 2023-02-02 07:39 | NUR ---
ADMISSION: Pt arrived to ICU room 9 from ED. He is alert and oriented to person, place, and situation. Pt was promptly given a bedbath as he and his bedding were saturated with urine. Blood pressure cuff changed to appropriate size as well.
[2023-02-02 10:08] LABS: Source, Urine Clean Catch
[2023-02-02] MEDS ORDERED: Cleocin HCl150 MG PO (10:12)
[2023-02-02 10:17] LABS: Appearance, Urine Clear (Clear); Bilirubin, Urine Neg (Neg); Blood, Urine Neg (Neg); Color, Urine Yellow (P-Yellow); Glucose Qualitative, Urine 4+ (Neg); Ketones, Urine Neg (Neg); Leukocyte Esterase, Urine Neg (Neg); Nitrite, Urine Neg (Neg); Protein, Urine 1+ (Neg); Urobilinogen, Urine NORM (Normal)
[2023-02-02] MEDS ORDERED: Betamethasone V15 GM TOP (10:19)
[2023-02-02] MEDS ORDERED: Ketoconazole15 GM TOP (10:21)
[2023-02-02] MEDS ORDERED: ZESTRIL40 M1 PO (10:22)
[2023-02-02] MEDS ORDERED: STEGLATRO15 MG PO (10:23)
[2023-02-02] MEDS ORDERED: STEGLATRO5 MG PO (10:24)
[2023-02-02 10:26] LABS: Base Excess Venous -4.2 mmol/L; Bicarbonate Venous 20.8 mmol/L (24.0-30.0); PCO2 Venous 47.8 mmHg (38-42); pH Blood Venous 7.28 (7.34-7.37)
[2023-02-02] MEDS ORDERED: B-12500 MC2 PO (10:27)
[2023-02-02] MEDS ORDERED: THERA-D2000 UNIT PO (10:28)
[2023-02-02] MEDS ORDERED: ATOR20 PO (10:29)
[2023-02-02] MEDS ORDERED: DULO30 PO (10:30)
[2023-02-02] MEDS ORDERED: DULO60 PO (10:30)
[2023-02-02] MEDS ORDERED: OLAN10 PO (10:31)
[2023-02-02] MEDS ORDERED: MELATONIN5 M1 PO (10:33)
[2023-02-02] MEDS ORDERED: NARCAN4 M1 (10:36)
[2023-02-02 10:53] LABS: U Amphetamine Screen Not Detected; U Barbituate Screen Not Detected; U Benzodiazapine Screen Not Detected; U Buprenorphine Screen Not Detected; U Cannabinoids Screen DETECTED; U Cocaine Screen Not Detected; U Methadone Screen Not Detected; U Methamphetamine Screen Not Detected; U Opiates Screen Not Detected; U Oxycodone Screen DETECTED; U Phencyclidine Screen Not Detected
--- NOTE | 2023-02-02 15:14 | NUR ---
Pt. is awake in bed and welcomes my visit. Pt. is pleasant. Pt. verbalizes that he is a person of dannie, and I facilitated a life review. Pt. displays evidence of optimism, awareness and engagement. Considered matters of dannie and belief. Rapport is established as he continues to verbalize the events of his dannie journey. Prayed with pt. Pt. verbalized gratitude forthe spiritual care visit and welcomed this professional poker player to return.
--- NOTE | 2023-02-02 16:20 | NUR ---
PROVIDER UPDATE: Dr Roque called and notified of pt's continued emesis despite first dose of zofran. She was also notified of patient's hypertension and home medication for antihypertensives.
--- NOTE | 2023-02-02 17:23 | NUR ---
SHIFT SUMMARY: Pt admitted to ICU 9 from ED this morning. He has been calm and cooperative throughout the day. He tolerated wearing his home CPAP while awake for approximately 30 minutes. Pt does report having home O2 which he is supposed to wear 2L NC, but does not always use. Zofran given twice for nausea/emesis. PRN dose of flexeryl given for neck/back pain. Pt complains of neuropathy in his BLE for which he takes his lyrica. Condom cath placed twice, but was unsuccessful. Attends with bladder wrap currently in place. [facility] staff updated on pt status.
--- NOTE | 2023-02-02 17:29 | NUR ---
PROVIDER UPDATE: Pt's BP continues to be elevated. Pt complainin of headache. Dr Roque called with no answer; message left.
--- NOTE | 2023-02-02 17:56 | NUR ---
ORTHOSTATIC BP: As this RN when to administer PRN hydralazine for BP 181/100, pt requested to stand at bedside to void. While standing, pt complained of some dizziness. HR increased from 100 to 110 and standing BP was 147/94. Pt reports hx of syncope and falls due to his BP.
--- NOTE | 2023-02-02 18:28 | NUR ---
TELEPHONE REPORT RECEIVED FROM BELLA Ledesma RN
--- NOTE | 2023-02-02 18:47 | NUR ---
EMESIS: Pt with another bout of emesis on the way to PCU. Dr Roque called; zofran frequency changed to q4h
--- NOTE | 2023-02-02 18:56 | NUR ---
Pt arrived to PCU 12. He is alert, oriented, and conversant. He is nauseated, dry heaving. Zofran given IV per new order. He also is asking for something to drink as well as pain medication for his center lower back. He is lying on his left side, holding his head in his hands. Vital signs taken, blood pressure noted elevated. Sinus tachycardia 102 bpm. Respirations are even, unlabored at 15/minute. Given oxycodone 10 mg per PRN orders for pain.
--- NOTE | 2023-02-02 23:37 | NUR ---
UPDATE PT W/ C/O NAUSEA/CONTINUOUS VOMITING FOLLOWING ASSUMPTION OF CARE. PT HAD BEEN MEDICATED W/ ZOFRAN PRIOR TO SHIFT CHANGE, VOMITING CONTINUED. CALL PLACED TO MD. ORDERS RECEIVED FOR REGLAN, ADMINISTERED PER EMAR. PT HAS CONTINUED TO ENDORSE N/V, HYPERTENSION HAS CONTINUED. PT ALSO ENDORSES HEADACHE. MD W/ ORDERS FOR STAT MRI, UNABLE TO OBTAIN UNTIL AM. ORDERS FOR STAT HEAD CT, Q2HR NEURO CHECKS, HOLD ALL PM MEDICATIONS, AND FENTANYL IV PER EMAR FOR PAIN MANAGEMENT. PT TO CT AT THIS TIME VIA [place]. NEURO CHECKS REMAIN UNCHANGED AT THIS TIME.
[2023-02-03 03:16] VITALS: BP 157/92
[2023-02-03 03:30] LABS: Hematocrit 43.5 % (37.0-53.0); Mean Corpuscular HGB 27.1 pg (26.0-34.0); Mean Corpuscular HGB Conc 32.2 g/dL (31.5-36.5); Mean Corpuscular Volume 84 fL (80-100); Mean Platelet Volume 10.4 fL (9.1-12.4); Platelet Count 164 K/mm3 (150-400); RDW Coefficient Variation 15.3 % (11.7-14.2); Red Blood Cell Count 5.16 M/mm3 (4.30-5.90); White Blood Cell Count 11.92 K/mm3 (4.00-11.30)
[2023-02-03 03:53] LABS: Albumin, Blood 3.6 g/dL (3.4-5.0); Anion Gap 4 mmol/L (6-16); Blood Urea Nitrogen 48 mg/dL (8-24); CO2, Blood 25 mmol/L (21-32); Calcium, Blood 8.8 mg/dL (8.5-10.1); Chloride, Blood 113 mmol/L (98-108); Creatinine, Blood 2.29 mg/dL (0.60-1.20); Glomerular Filtration Rate 31 (60-); Glucose, Blood 177 mg/dL (70-99); Phosphorus, Blood 3.9 mg/dL (2.5-4.9); Potassium, Blood 5.4 mmol/L (3.5-5.5); Sodium, Blood 142 mmol/L (136-145)
[2023-02-03 05:15] LABS: PCO2 Arterial 45.4 mmHg (35-45); PO2 Arterial 74.6 mmHg (80-100)
--- NOTE | 2023-02-03 05:16 | NUR ---
END OF SHIFT NOTE: SEE PREVIOUS NOTE REGARDING EVENTS OVERNIGHT. Q2 NEURO CHECKS HAVE BEEN PERFORMED, REMAIN UNCHANGED FROM INITIAL ASSESSMENT. STAT HEAD CT COMPLETED. PT IS ALERT, ORIENTED X4. ABLE TO ANSWER QUESTIONS APPROPRIATELY. PERRLA. EXIT BOOTH AGENT STRENGTH EQUAL BILATERALLY. NO UNILATERAL DEFICITS NOTED. BP REMAINS ELEVATED, MD AWARE OF THIS. BP SEEMS TO HAVE DECREASED MINIMALLY W/ ADEQUATE PAIN MANAGEMENT. PT REPORTS SEVERE PAIN IN HIS BACK, STATING "I NORMALLY TAKE A LOT OF OXY AROUND THE CLOCK, AND WHEN I DON'T TAKE IT I GET REALLY NAUSEOUS." OXYCODONE W/ REGLAN ADMINISTERED PER EMAR THIS AM, NO N/V AT THIS TIME. SINUS TACH ON TELE, RATE 100'S. SBP 150-190'S. PT DENIES CHEST PAIN/PRESSURE. SPO2 >92% ON 3L VIA NC, CPAP HAS NOT BEEN PLACED DUE TO FREQUENT N/V. CONDOM CATH PLACED DUE TO INCONTINENCE; PT IS ABLE TO USE THE URINAL AT TIMES BUT HAS INCONTINENCE WELL. NS CONTINUES INFUSING AT 125 ML/HR. INDEPENDENTLY REPOSITIONING T/O SHIFT. NO OTHER NEEDS AT THIS TIME. CALL LIGHT WITHIN REACH, BED IN LOWEST POSITION, BED ALARM ON FOR PT SAFETY. WILL REPORT TO ONCOMING RN.
[2023-02-03 05:17] LABS: pH Blood Arterial 7.27 (7.35-7.45)
--- NOTE | 2023-02-03 06:06 | NUR ---
UPDATE NO OSTOMY OUTPUT OVERNIGHT. GI PANEL STILL PENDING SAMPLE HAS NOT BEEN COLLECTED. ENTERIC PRECAUTIONS IN PLACE FOR R/O CDIFF.
[2023-02-03 07:18] VITALS: BP 160/104
--- NOTE | 2023-02-03 08:02 | NUR ---
The pt is still hypertensive this morning, but no n/v/d. He is just tired he says from not sleeping at all last night. Incontinent of large amount of urine due to his neurogenic bladder and fatigue, he says. Condom cath is not staying in place due to his movement in bed.
--- NOTE | 2023-02-03 12:09 | NUR ---
Pt awakened by doctor during rounds. Pt had been incontinent of urine while sleeping. Condom catheter in place, appears to be intact, so uncertain how the urinary incontinence occured.Condom cath removed; will replace with smaller size once he has returned from imaging dept. PT states that he knows somewhat when he needs to void, but also has chronic incontinence of urine. Ambulatory to the bathroom to void; noted he has incontinence before and after during the walk. Attends placed and pt telemetry device removed, pt helped into wheelchair for transport to imaging for MRI and CT scans at this time. He is using the walker for ambulation, and doing well. IVF order decreased to 100 cc/hour.
[2023-02-03 12:39] VITALS: BP 160/88
--- NOTE | 2023-02-03 12:43 | NUR ---
Pt returned from imaging dept. Now sitting up in chair, eating lunch. Upper dentures given to him to eat. He says that he does not have lower dentures, nor lower teeth. He is c/o pain in his back. Heating pad provided for relief. Also offered warm shower after lunch, which he agreed to.
--- NOTE | 2023-02-03 12:49 | NUR ---
Spoke with Swathi from [facility] who said that she will fax over the pt's home medications list, for verification. Updated her on the pt's condition at this time.
[2023-02-03 14:20] LABS: PCO2 Arterial 38.2 mmHg (35-45); PO2 Arterial 67.6 mmHg (80-100); pH Blood Arterial 7.39 (7.35-7.45)
[2023-02-03] MEDS ORDERED: INSULIN AS100 UNIT/7 SC (14:35)
--- NOTE | 2023-02-03 15:12 | NUR ---
spo2 84% while sleeping. The pt refuses to wear his CPAP. Says that he can't tolerate it; has not worn it at home for "2 years". Spo2 did not improve with awakening the patient, nor with deep breathing and coughing and sitting the pt up fully in the bed. He is awake, alert, in no distress but spO2 is steady at 86 % despite increasing o2 flow to 6 l/min and wearing the home CPAP. RT is here with the pt. He says that he feels fine, perfectly normal. Lung sounds are very diminished, with faint wheezing noted in the right posterior lobe.
[2023-02-03 15:26] LABS: Source, Urine Foley catheter
[2023-02-03 15:34] LABS: Appearance, Urine Clear (Clear); Bilirubin, Urine Neg (Neg); Blood, Urine 3+ (Neg); Glucose Qualitative, Urine 4+ (Neg); Ketones, Urine Neg (Neg); Leukocyte Esterase, Urine Neg (Neg); Nitrite, Urine Neg (Neg); Protein, Urine 2+ (Neg); Urobilinogen, Urine NORM (Normal)
[2023-02-03 15:37] VITALS: BP 146/94
[2023-02-03 15:51] LABS: Color, Urine Pale Yellow (P-Yellow)
[2023-02-03 15:53] LABS: White Blood Cells, Urine 0-2 /hpf (0-5)
[2023-02-03 15:54] LABS: Bacteria Few /hpf; Hyaline Casts 0-2 /lpf (0-2); Squamous Epithelial Cells Rare /hpf (Few)
[2023-02-03 15:55] LABS: Mucus Light (0-Heavy)
--- NOTE | 2023-02-03 15:58 | NUR ---
Call to DR. Roque. Pt is on hospital bipap now, O2 delivery is at 8 l/min and spo2 95%. Pt continues to have no distress, RR 16/min.
--- NOTE | 2023-02-03 17:15 | NUR ---
Up to chair at bedside for dinner. C/o backpain, foot pain. C/o bipap drying his mouth out too much. He is on 7 l/min O2 and spo2 96% at rest, 92-93% while sitting up in chair, eating. No respiratory distress.
[2023-02-03 19:47] VITALS: BP 160/110
--- NOTE | 2023-02-03 22:55 | NUR ---
UPDATE: THIS RN ASSUMED CARE OF PT AT APPROX 1915. DURING BEDSIDE REPORT, PT WAS ON 7L O2 VIA NC W/ SPO2 90%. TELEMETRY NOTIFIED THIS RN THAT PT WAS DESATTING INTO THE 80'S, O2 INCREASED TO 8L VIA NC. PT W/ COUGH AT THIS TIME. RT TO BEDSIDE TO PROVIDE BREATHING TREATMENT. PT CONTINUED TO DESAT INTO 80'S, BEDSPREAD CUTTER TO BEDSIDE AND CALL PLACED TO [facility] PHYSICIAN. ORDERS RECEIVED FOR STAT CT PE STUDY, EKG, AND BIPAP PROTOCOL. PT PLACED ON BIPAP BY RT. EKG COMPLETED, SHOWING AFIB W/ RATE 110-120'S; NOTIFIED OF THIS. PT TO IMAGING FOR CT PE ON 15L VIA NRB. THIS RN NOTIFIED BY CLINICAL REHABILITATION COORDINATOR THAT PT STARTED CONTINUALLY VOMITING ON ARRIVAL TO CT. THIS RN TO CT ROOM, MEDICATED PT W/ REGLAN PER EMAR; VOMITING CEASED WITHIN APPROX 2 MINUTES AFTER ADMINISTRATION. THIS RN REMAINED IN CT TO CONTINUE MONITORING PT. PT TRANSPORTED BACK TO ROOM. THIS RN INFORMED THAT PT REPORTED CHEST PAIN TO OTHER STAFF MEMBERS IN THE ROOM THAT HAS SINCE RESOLVED, HOWEVER, ST CHANGES WERE OBSERVED IN 4 LEADS ON TELEMETRY. CALL PLACED TO [facility] PHYSICIAN. ORDERS RECEIVED TO TREND TROPONINS X3. PM PO MEDS HELD DUE TO N/V, ORDERS RECEIVED TO ADMINISTER FENTANYL 25MCG IV X1 FOR SEVERE BACK PAIN. PT RESTING IN BED AT THIS TIME ON NRB W/ SPO2 90-94%. PT EDUCATED ON REMOVING MASK IMMEDIATELY AND CALLING STAFF IF ANY FEELINGS OF N/V OCCUR. PT VOICED UNDERSTANDING OF THIS. CALL LIGHT WITHIN REACH, BED IN LOWEST POSITION.
[2023-02-03 23:47] LABS: Adenovirus Not Detected (NOT DETECT); Bordetella pertussis Not Detected (NOT DETECT); Chlamydophila pneumoniae Not Detected (NOT DETECT); Coronavirus 229E Not Detected (NOT DETECT); Coronavirus HKU1 Not Detected (NOT DETECT); Coronavirus NL63 Not Detected (NOT DETECT); Coronavirus OC43 Not Detected (NOT DETECT); Human Metapneumovirus Not Detected (NOT DETECT); Human Rhinovirus/Enterovirus Detected (NOT DETECT); Influenza A/2009-H1 Not Detected (NOT DETECT); Influenza A/H1 Not Detected (NOT DETECT); Influenza A/H3 Not Detected (NOT DETECT); Influenza B Not Detected (NOT DETECT); Mycoplasma pneumoniae Not Detected (NOT DETECT); Parainfluenza Virus 1 Not Detected (NOT DETECT); Parainfluenza Virus 2 Not Detected (NOT DETECT); Parainfluenza Virus 3 Not Detected (NOT DETECT); Parainfluenza Virus 4 Not Detected (NOT DETECT); Respiratory Syncytial Virus Not Detected (NOT DETECT); SARS-Cov-2 (COVID-19), BioFire Not Detected (NOT DETECT)
[2023-02-04 00:06] VITALS: BP 141/84
--- NOTE | 2023-02-04 00:18 | NUR ---
UPDATE: NOTIFIED OF ELEVATED TROPONIN, POSITIVE TEST FOR RHINOVIRUS, AND NEGATIVE CT PE STUDY. ORDERS TO CONTINUE TRENDING TROPONINS AT THIS TIME AND MONITOR PT CONDITION. PT ON 7L VIA NRB AT THIS TIME, RESTING IN BED. CALL LIGHT IN REACH.
[2023-02-04 03:17] LABS: BASOPHILS ABSOLUTE AUTO 0.02 K/mm3 (0.00-0.23); BASOPHILS PERCENT AUTO 0 % (0-2); EOSINOPHILS ABSOLUTE AUTO 0.01 K/mm3 (0.00-0.68); EOSINOPHILS PERCENT AUTO 0 % (0-6); Hematocrit 41.8 % (37.0-53.0); Hemoglobin 13.5 g/dL (13.5-17.5); IMMATURE GRAN ABSOLUTE AUTO 0.05 K/mm3 (0.00-0.10); IMMATURE GRAN PERCENT AUTO 0 % (0-1); LYMPHOCYTES ABSOLUTE AUTO 1.22 K/mm3 (0.84-5.20); LYMPHOCYTES PERCENT AUTO 8 % (21-46); MONOCYTES ABSOLUTE AUTO 1.25 K/mm3 (0.16-1.47); MONOCYTES PERCENT AUTO 8 % (4-13); Mean Corpuscular HGB 26.7 pg (26.0-34.0); Mean Corpuscular HGB Conc 32.3 g/dL (31.5-36.5); Mean Corpuscular Volume 83 fL (80-100); Mean Platelet Volume 10.1 fL (9.1-12.4); NEUTROPHILS ABSOLUTE AUTO 12.89 K/mm3 (1.96-9.15); NEUTROPHILS PERCENT AUTO 84 % (41-73); Platelet Count 192 K/mm3 (150-400); RDW Coefficient Variation 15.9 % (11.7-14.2); RDW Standard Deviation 46.9 fL (35.1-46.3); Red Blood Cell Count 5.05 M/mm3 (4.30-5.90); White Blood Cell Count 15.44 K/mm3 (4.00-11.30)
[2023-02-04 03:32] VITALS: BP 145/94
[2023-02-04 03:39] LABS: Albumin, Blood 3.4 g/dL (3.4-5.0); Anion Gap 6 mmol/L (6-16); Blood Urea Nitrogen 36 mg/dL (8-24); Bun/Creatinine Ratio 24.3 (12.0-20.0); CO2, Blood 23 mmol/L (21-32); Calcium, Blood 8.4 mg/dL (8.5-10.1); Chloride, Blood 113 mmol/L (98-108); Creatinine, Blood 1.48 mg/dL (0.60-1.20); Glomerular Filtration Rate 53 (60-); Glucose, Blood 161 mg/dL (70-99); Phosphorus, Blood 2.8 mg/dL (2.5-4.9); Potassium, Blood 4.8 mmol/L (3.5-5.5); Sodium, Blood 142 mmol/L (136-145)
[2023-02-04 05:05] LABS: PCO2 Arterial 34.6 mmHg (35-45); PO2 Arterial 73.7 mmHg (80-100)
--- NOTE | 2023-02-04 05:20 | NUR ---
END OF SHIFT NOTE: SEE PREVIOUS NOTES REGARDING EVENTS OVERNIGHT. PT IS ALERT, ORIENTED X4. ABLE TO ANSWER QUESTIONS APPROPRIATELY. PERRLA. HR 100-110'S, SINUS TACH TO AFIB TO SINUS TACH OVERNIGHT. SBP 140-160'S. PT DENIES CHEST PAIN/PRESSURE AT THIS TIME, 1 INSTANCE OF CHEST PAIN PRIOR TO TELEMETRY CHANGES AND CT PE SCAN. TRENDING TROPONINS THEY HAVE NOT YET PEAKED. SPO2 90-97% W/ INCREASING O2 DEMAND OVERNIGHT. PT IS ON 8L O2 VIA NRB, 2 BREATHING TREATMENTS BY RT. COUGH HAS ALSO INCREASED OVERNIGHT, MOST RECENTLY W/ PINK FROTHY SPUTUM PRODUCTION. RESIDENT DR. CADET TO BEDSIDE THIS AM TO EVALUATE PT DUE TO RESPIRATORY CHANGES. ORDERS RECEIVED TO DISCONTINUE IV FLUIDS AT THIS TIME DUE TO INCREASED PULMONARY CRACKLES ON AUSCULTATION. N/V T/O THE NIGHT, RESPONDING WELL TO REGLAN. SEVERE BACK PAIN REPORTED, MEDICATED W/ OXYCODONE PER EMAR WHEN TOLERATING PO MEDS; 1X IV FENTANYL ADMINISTERED PER EMAR FOR PAIN RELIEF. UP TO CHAIR FOR APPROX 1HR THIS AM W/ DECREASED WORK OF BREATHING OBSERVED. BACK TO BED W/ FWW PER PT REQUEST, TOLERATING LYING IN BED AT THIS TIME. INDEPENDENTLY REPOSITIONING T/O SHIFT. GREATER THAN 1600 ML YELLOW URINE OUTPUT; GRANT CATH REMAINS IN PLACE DUE TO ACUTE RETENTION, PATENT AND DRAINING TO GRAVITY. NO BM'S VIA OSTOMY, FLATUS WAS OBSERVED. NO OTHER NEEDS AT THIS TIME. CALL LIGHT WITHIN REACH, BED IN LOWEST POSITION. WILL REPORT TO ONCOMING RN.
--- NOTE | 2023-02-04 05:34 | NUR ---
OSTOMY UPDATE: THIS RN OBSERVED PT'S STOMA IS NOW WHITE IN APPEARANCE. THIS IS A RECENT CHANGE WITHIN THE LAST 1-2HRS STOMA HAD BEEN PINK IN COLOR PREVIOUSLY. NO BM'S. PT HAS PASSED FLATUS. BOWEL SOUNDS PRESENT. CALL PLACED TO DR. CADET; DR. CADET STATES SHE WILL DISCUSS THE CONCERNS WITH DR. JOAQUIN AND PLACE ORDERS IF NEEDED.
--- NOTE | 2023-02-04 06:08 | NUR ---
DR. JOAQUIN TO BEDSIDE TO ASSESS STOMA. OSTOMY APPLIANCE REMOVED. PHYSICIAN STATES STOMA APPEARS TO HAVE DRY WHITE, STICKY STOOL COATING THE OUTSIDE. WHITE STOOL REMOVED FROM CENTER OF STOMA REVEALING PINK TISSUE. PHYSICIAN STATES HE WILL DISCUSS CONCERNS W/ DAY SHIFT HOSPITALIST TO DETERMINE FURTHER INTERVENTIONS.
[2023-02-04 08:31] VITALS: BP 138/87
--- NOTE | 2023-02-04 11:26 | NUR ---
care assumption this rn assumed care at 0700. vital signs stable. patient reports pain in back and received pain med per emar. patient is alert and oriented x4. perrla. patient reports no shortness of breath or chest pain. see shift assessment for further detials. plan of care is up to date.
[2023-02-04 11:54] VITALS: BP 145/73
[2023-02-04 15:19] VITALS: BP 132/72
--- NOTE | 2023-02-04 18:09 | NUR ---
shift summary patient neuro remains unchanged. vitals stable. patient has had pain off and on throughout the day in back and feet, medicated per emar. patient will sit in chair for meals and get back into bed later. patient uses call light appropriately. no acute changes. plan of care remains up to date.
[2023-02-04 20:56] VITALS: BP 125/59
[2023-02-05] VITALS (7 sets, daily range): BP systolic 112–133; BP diastolic 65–103
[2023-02-05 04:33] LABS: Hematocrit 35.8 % (37.0-53.0); Hemoglobin 11.9 g/dL (13.5-17.5); Mean Corpuscular HGB 27.3 pg (26.0-34.0); Mean Corpuscular HGB Conc 33.2 g/dL (31.5-36.5); Mean Corpuscular Volume 82 fL (80-100); Mean Platelet Volume 10.1 fL (9.1-12.4); Platelet Count 149 K/mm3 (150-400); RDW Coefficient Variation 16.4 % (11.7-14.2); RDW Standard Deviation 48.1 fL (35.1-46.3); Red Blood Cell Count 4.36 M/mm3 (4.30-5.90); White Blood Cell Count 10.73 K/mm3 (4.00-11.30)
[2023-02-05 05:00] LABS: Anion Gap 6 mmol/L (6-16); Blood Urea Nitrogen 27 mg/dL (8-24); Bun/Creatinine Ratio 23.9 (12.0-20.0); CO2, Blood 25 mmol/L (21-32); Calcium, Blood 8.3 mg/dL (8.5-10.1); Chloride, Blood 112 mmol/L (98-108); Creatinine, Blood 1.13 mg/dL (0.60-1.20); Glomerular Filtration Rate 73 (60-); Glucose, Blood 141 mg/dL (70-99); Phosphorus, Blood 3.7 mg/dL (2.5-4.9); Potassium, Blood 4.3 mmol/L (3.5-5.5); Sodium, Blood 143 mmol/L (136-145)
--- NOTE | 2023-02-05 05:39 | NUR ---
SHIFT SUMMARY ASSUMED CARE OF PT AT 1900. PT IS A/OX4. HEART SUNDS REGULAR. LUNG SOUNDS DIMINISHED. PT ON 4L NC WHICH IS BASELINE. PT C/O BACK PAIN, MEDICATED PER EMAR. PT OSTOMY HAS WHITE DISCHARGE AROUND STOMA. PT HAD NO OUTPUT. GRANT DRAINING CLEAR URINE. PT SLEPT T/O THE NOC, NO ACUTE EVENTS.
--- NOTE | 2023-02-05 08:30 | NUR ---
CARE ASSUMPTION this rn assumed care at 0700. vital signs stable. tele sr bbb 80s. patient is alert and oriented x4. perrla. patient is able to make needs known. patient reports neuropathy in legs and back pain, rated at 8. patient received warm blanket and heating pad and pain medication per emar. patient reports no chest pain/pressure or shortness of breath. bales cath draining with gravity and yellow in coloration. no output from ostomy at this time. see shift assessment for further detials. plan of care remains up to date.
--- NOTE | 2023-02-05 17:49 | NUR ---
shift summary patient ostomy changed, and the white appearance appeared to be adhesive cream that was applied when changing appliance. appliance changed and md parikh and md garza updated, and patient at this time had three small nugget size bowel in ostomy bag. patient had a large output and part of it was unmeasured due to leaking out of the ostomy bag. patient cleaned up and appliance changed. patient output has slowed down. see Is&Os. vitals signs remained stable. no acute changes. patient uses call light appropriately to make needs known. plan of care remains up to date.
[2023-02-06 04:50] LABS: Hematocrit 36.8 % (37.0-53.0); Mean Corpuscular HGB 26.9 pg (26.0-34.0); Mean Corpuscular HGB Conc 32.6 g/dL (31.5-36.5); Mean Corpuscular Volume 83 fL (80-100); Mean Platelet Volume 10.3 fL (9.1-12.4); Platelet Count 146 K/mm3 (150-400); RDW Coefficient Variation 16.2 % (11.7-14.2); RDW Standard Deviation 48.4 fL (35.1-46.3); Red Blood Cell Count 4.46 M/mm3 (4.30-5.90); White Blood Cell Count 9.57 K/mm3 (4.00-11.30)
[2023-02-06 04:59] VITALS: BP 138/80
[2023-02-06 05:15] LABS: Alanine Aminotransfer (ALT/SGP 19 U/L (12-78); Albumin, Blood 2.9 g/dL (3.4-5.0); Albumin/Globulin Ratio 0.9 (0.8-1.8); Alk Phos 45 U/L (50-136); Anion Gap 6 mmol/L (6-16); Aspartate Aminotrans (AST/SGOT 20 U/L (12-37); Bilirubin, Total 0.9 mg/dL (0.1-1.0); Blood Urea Nitrogen 24 mg/dL (8-24); Bun/Creatinine Ratio 22.6 (12.0-20.0); CO2, Blood 26 mmol/L (21-32); Calcium, Blood 8.6 mg/dL (8.5-10.1); Chloride, Blood 112 mmol/L (98-108); Cholesterol 100 mg/dL (50-200); Creatinine, Blood 1.06 mg/dL (0.60-1.20); Globulin, Blood 3.3 g/dL (2.2-4.0); Glomerular Filtration Rate 79 (60-); Glucose, Blood 121 mg/dL (70-99); HDL Cholesterol 33 mg/dL (>39); LDL/HDL RATIO 1.2; Low Density Lipoprotein Chol 38 mg/dL (0-110); Potassium, Blood 3.9 mmol/L (3.5-5.5); Sodium, Blood 144 mmol/L (136-145); Total Protein, Blood 6.2 g/dL (6.4-8.2); Triglycerides 144 mg/dL (30-160); Very Low Density Lipoprot Chol 28 mg/dL (6-32)
--- NOTE | 2023-02-06 05:33 | NUR ---
SHIFT SUMMARY ASSUMED CARE OF PT AT 1900. PT IS A/OX4. HEART SOUNDS REGULAR, LUNG SOUNDS DIMINISHED. PT HAD NO NEW COMPLAINTS THIS EVENING. PT ASKED FOR PAIN MEDICATIONS FREQUENTLY. PT OSTOMY HAVING LARGE AMOUNT OF WATERY BROWN STOOL.
[2023-02-06 08:06] VITALS: BP 156/90
--- NOTE | 2023-02-06 17:29 | NUR ---
SHIFT SUMMARY: PT ALERT AND ORIENTED X3-4. ABLE TO FOLLOW COMMANDS AND MAKE NEEDS KNOWN. FORGETFUL AT TIMES. STRENGTH EQUAL BILATERALLY. BP AND HR STABLE. AFEBRILE. SPO2 >94% ON ROOM AIR. RESPIRATIONS EVEN AND UNLABORED AT REST, PT STATES SOB WITH ACTIVITY. PULSES STRONG AND EQUAL THROUGHOUT. PT WITH OSTOMY IN PLACE, DRAINING LIQUID BROWN STOOL. APPLIANCE C/D/I. GRANT CATH REMAINS IN PLACE, PATENT AND DRAINING YELLOW URINE TO GRAVITY, APPROX 2400ML OF OUTPUT THIS SHIFT. STRESS TEST ORDERED THIS AM, FIRST PORTION COMPLETED. 2ND PORTION 02/07/23, NPO AT MIDNIGHT. PT WITH CHRONIC BACK/PAIN, MEDICATED PER EMAR. PT NOW MED NO TELE STATUS. BED IN LOW, CALL LIGHT IN REACH, WILL REPORT TO ONCOMING RN.
--- NOTE | 2023-02-06 19:37 | NUR ---
PT CALLED REQUESTING PRN PAIN MEDS FOR NEUORPATHIC PAIN IN FEET AND LEFT FLANK PAIN. ADMINISTERED OXY 10MG. V/S OBTAINED.
--- NOTE | 2023-02-06 19:42 | NUR ---
PATIENT WILL BE TRANSFERRING TO MEDICAL FLOOR ROOM #[id number].
--- NOTE | 2023-02-06 19:51 | NUR ---
CALL TO RECEIVING RN, JORGE CHOE; SHE WILL CALL WHEN SHE IS ABLE TO RECEIVE REPORT. PATIENT RESTING AT THIS TIME.
--- NOTE | 2023-02-06 21:10 | NUR ---
REPORT GIVEN TO JORGE MAJANO. PT LEAVING [facility] @ 2110 VIA WHEELCHAIR ESCORT WITH CHART AND ALL BELONGINGS TO ROOM 334.
[2023-02-06 21:25] VITALS: BP 136/88
--- NOTE | 2023-02-07 00:29 | NUR ---
02/06/23 2147 PT LYING IN BED, ARRIVED TO ROOM FROM PCU IN STABLE CONDITION. REPORTS PAIN IN FEET AND BACK, PT RECIEVED PAIN MED FROM PLATE STRAIGHTENER RECENTLY. WILL CONTINUE TO MEDICATE AND EVAL ORDERED. TELE NSR BBB WITH FREQUENT PAC'S AT 82. BS WAS 155. NO OTHER APPARENT SIGNS OF DISTRESS. CALL LIGHT IS IN REACH.
--- NOTE | 2023-02-07 00:53 | NUR ---
2200 PT LYING IN BED, EYES CLOSED, APPEARS TO BE RESTING. BREATHING IS EVEN, UNLABORED. NO APPARENT SIGNS OF DISTRESS. CALL LIGHT IS IN REACH.
--- NOTE | 2023-02-07 00:54 | NUR ---
02/06/23 2338 PT REQUESTED AND RECIEVED PAIN MEDS, WILL EVAL FOR EFFECT. NO OTHER APPARENT SIGNS OF DISTRESS. CALL LIGHT IS IN REACH.
--- NOTE | 2023-02-07 02:09 | NUR ---
PT LYING IN BED, EYES CLOSED, APPEARS TO BE RESTING. BREATHING IS EVEN, UNLABORED. NO APPARENT SIGNS OF DISTRESS. CALL LIGHT IS IN REACH.
[2023-02-07 03:20] VITALS: BP 108/74
--- NOTE | 2023-02-07 04:33 | NUR ---
PT IS AAO X 4, REPORTS PAIN IN FEET AND BACK, GOT PAIN MEDS X 2. TELE SR WITH BBB AND FREQUENT PAC'S IN 80'S. LAST BS WAS 155.
--- NOTE | 2023-02-07 04:33 | NUR ---
PT LYING IN BED, EYES CLOSED, APPEARS TO BE RESTING. BREATHING IS EVEN, UNLABORED. NO APPARENT SIGNS OF DISTRESS. CALL LIGHT IS IN REACH. BED ALARM IS ON.
--- NOTE | 2023-02-07 05:44 | NUR ---
PT LYING IN BED, EYES CLOSED, APPEARS TO BE RESTING. BREATHING IS EVEN, UNLABORED. NO APPARENT SIGNS OF DISTRESS. CALL LIGHT IS IN REACH. NO OTHER CHANGES THIS SHIFT.
[2023-02-07 07:38] VITALS: BP 140/82
[2023-02-07 08:32] LABS: Albumin, Blood 2.9 g/dL (3.4-5.0); Anion Gap 5 mmol/L (6-16); Blood Urea Nitrogen 22 mg/dL (8-24); CO2, Blood 27 mmol/L (21-32); Calcium, Blood 8.8 mg/dL (8.5-10.1); Chloride, Blood 111 mmol/L (98-108); Glomerular Filtration Rate 85 (60-); Glucose, Blood 142 mg/dL (70-99); Phosphorus, Blood 3.7 mg/dL (2.5-4.9); Sodium, Blood 143 mmol/L (136-145)
[2023-02-07 15:16] VITALS: BP 153/90
--- NOTE | 2023-02-07 16:16 | NUR ---
SHIFT SUMMARY PATIENT IS ALERT AND ORIENTED. PATIENT HAS HAD NO ACUTE EVENTS THIS SHIFT. PATIENT IS FROM [facility] AND IS A POSSIBLE DISCHARGE TOMORROW BY TO [facility]. PATIENT HAS HAD HIS GRANT DISCONTINUED. PATIENT HAS VOIDED SINCE GRANT REMOVAL. PATIENT HAS HAD MODERATE OUTPUT OUT OF COLOSTOMY. PATIENT HAS HAD OXYGEN TITRATED DOWN TO PATIENTS BASELINE. PATIENT COMPLAINED OF PAIN AND MEDICATED PER EMAR. PATIENT HAS HAD NO COMPLAINTS OF SOB, NAUSEA OR VOMITTING THIS SHIFT. VITAL SIGNS REVIEWED. BED IN LOCKED AND LOWEST POSITION. CALL LIGHT IN PLACE.
[2023-02-07 19:40] VITALS: BP 166/93
[2023-02-08 03:19] VITALS: BP 141/86
--- NOTE | 2023-02-08 04:09 | NUR ---
SHIFT SUMMARY ADMITTED FOR ACUTE RENAL FAILURE. DNR CODE. DROPLET/CONTACT PRECAUTIONS FOR RHINOVIRUS. HE DID ORIGINALLY COME IN FOR A FALL WHERE HE HIT HIS HEAD AND HAD A LACERATION. HE HAS A HX OF RECTAL CANCER AND HAS A COLOSTOMY IN PLACE. ACHS CBG'S. STANDBY ASSIST W/FWW. A&O X4. 2 LPM O2 @ BASELINE. TELEMETRY: NSR @ 80 BPM W/BBB. LASIX IS SCHEDULED. HE LIVES AT [facility] WHERE HE HOPES TO DC BACK TO TODAY.
[2023-02-08 06:21] LABS: Potassium, Blood 3.9 mmol/L (3.5-5.5)
[2023-02-08 08:09] VITALS: BP 150/73
[2023-02-08] MEDS ORDERED: ASPI81CH PO (13:56)
[2023-02-08] MEDS ORDERED: AMOCLA875 PO (13:56)
[2023-02-08] MEDS ORDERED: VISBIOME 112.51 EACH PO (13:57)
[2023-02-08] MEDS ORDERED: TAMS.4ER PO (13:57)
[2023-02-08] MEDS ORDERED: METO25ER PO (13:57)
[2023-02-08] MEDS ORDERED: HUMALOG KW100 UNIT/1 SC (13:58)
--- NOTE | 2023-02-08 14:23 | NUR ---
1415-DC PT LEFT VIA TRANSPORT IN IN STABLE CONDITION WITH ALL BELONGINGS.
[2023-02-09 05:11] LABS: HEMOGLOBIN A1C 6.4 % (4.8-5.6)
== END 2023-02-08 14:17 | disposition home health service (06) | DRG 682 ==
LOC: ER 01:12 → PCU 04:32 → ICUE 04:32 → ERHOLD 04:32 → ICUE 07:33 → PCU 07:40 → MEDS 02-06 21:15
PROVIDERS: Emergency Medicine; Family Medicine; Internal Medicine; Student in an Organized Health Care Education/Training Program; ADMIT Internal Medicine
PROC: 5A09357 Assistance with Respiratory Ventilation, Less than 24 Consecutive Hours, Continuous Positive Airway Pressure (ICD-10-PCS; principal; 2023-02-02)
PROC: 0HQ0XZZ Repair Scalp Skin, External Approach (ICD-10-PCS; 2023-02-02)
DX: N17.0 Acute kidney failure with tubular necrosis (principal); I21.A1 Myocardial infarction type 2; J96.01 Acute respiratory failure with hypoxia; J96.02 Acute respiratory failure with hypercapnia; J69.0 Pneumonitis due to inhalation of food and vomit; I50.41 Acute combined systolic (congestive) and diastolic (congestive) heart failure; N13.8 Other obstructive and reflux uropathy; Z66 Do not resuscitate; S01.01XA Laceration without foreign body of scalp, initial encounter; N13.30 Unspecified hydronephrosis; E86.1 Hypovolemia; I95.89 Other hypotension; E86.0 Dehydration; N40.1 Benign prostatic hyperplasia with lower urinary tract symptoms; R33.8 Other retention of urine; J06.9 Acute upper respiratory infection, unspecified; B97.89 Other viral agents as the cause of diseases classified elsewhere; I11.0 Hypertensive heart disease with heart failure; E11.42 Type 2 diabetes mellitus with diabetic polyneuropathy; G89.4 Chronic pain syndrome; F41.9 Anxiety disorder, unspecified; G47.33 Obstructive sleep apnea (adult) (pediatric); F17.210 Nicotine dependence, cigarettes, uncomplicated; F31.9 Bipolar disorder, unspecified; E87.5 Hyperkalemia; W18.30XA Fall on same level, unspecified, initial encounter; Y92.009 Unspecified place in unspecified non-institutional (private) residence as the place of occurrence of the external cause; Z93.3 Colostomy status; Z85.048 Personal history of other malignant neoplasm of rectum, rectosigmoid junction, and anus; Z88.8 Allergy status to other drugs, medicaments and biological substances; Z79.4 Long term (current) use of insulin; Z79.84 Long term (current) use of oral hypoglycemic drugs; Z79.899 Other long term (current) drug therapy
CPT/HCPCS: 0202U; 12001; 36415; 36600; 51702; 70450; 70551; 71045; 71260; 72125; 72170; 74176; 74250; 76770; 78452; 80048; 80053; 80061; 80069; 81001; 82550; 82803; 82947; 83036; 83605; 83735; 83880; 84100; 84145; 84443; 84484; 85025; 85027; 85379; 85610; 85730; 93005; 93010; 93017; 93306; 94640; 94660; 94761; 94762; 96361; 96374; 97110; 97112; 97161; 99285-25; A9270; A9500; C9113; J1644; J1940; J2310; J2405; J2765; J2785; J3010; J7030; L0160; Q9963; Q9967

== ENCOUNTER 2023-02-10 20:44 | Inpatient (IN) | payer OTHER ==
[~2023-02-10] VITALS: Ht 190.5 cm; Wt 101.3 kg
[~2023-02-10 20:44] MED LIST changes: +AMOCLA875 PO; +ASPI81CH PO; +ATOR20 PO; +B-12500 MC2 PO; +Betamethasone V15 GM TOP; +Cleocin HCl150 MG PO; +HUMALOG KW100 UNIT/1 SC; +INSULIN AS100 UNIT/7 SC; +Ketoconazole15 GM TOP; +MELATONIN5 M1 PO; +METO25ER PO; +STEGLATRO15 MG PO; +STEGLATRO5 MG PO; +VISBIOME 112.51 EACH PO; +ZESTRIL40 M1 PO
[2023-02-10 21:36] LABS: BASOPHILS ABSOLUTE AUTO 0.02 K/mm3 (0.00-0.23); BASOPHILS PERCENT AUTO 0 % (0-2); EOSINOPHILS ABSOLUTE AUTO 0.26 K/mm3 (0.00-0.68); EOSINOPHILS PERCENT AUTO 2 % (0-6); Hematocrit 35.8 % (37.0-53.0); Hemoglobin 11.8 g/dL (13.5-17.5); IMMATURE GRAN ABSOLUTE AUTO 0.04 K/mm3 (0.00-0.10); IMMATURE GRAN PERCENT AUTO 0 % (0-1); LYMPHOCYTES ABSOLUTE AUTO 0.97 K/mm3 (0.84-5.20); LYMPHOCYTES PERCENT AUTO 9 % (21-46); MONOCYTES ABSOLUTE AUTO 1.08 K/mm3 (0.16-1.47); MONOCYTES PERCENT AUTO 10 % (4-13); Mean Corpuscular HGB 27.6 pg (26.0-34.0); Mean Corpuscular Volume 84 fL (80-100); NEUTROPHILS ABSOLUTE AUTO 8.87 K/mm3 (1.96-9.15); NEUTROPHILS PERCENT AUTO 79 % (41-73); Platelet Count 202 K/mm3 (150-400); RDW Coefficient Variation 16.2 % (11.7-14.2); RDW Standard Deviation 48.9 fL (35.1-46.3); Red Blood Cell Count 4.27 M/mm3 (4.30-5.90); White Blood Cell Count 11.24 K/mm3 (4.00-11.30)
[2023-02-10 21:56] LABS: Albumin/Globulin Ratio 0.9 (0.8-1.8); Bilirubin, Total 0.6 mg/dL (0.1-1.0); Bun/Creatinine Ratio 23.3 (12.0-20.0); Calcium, Blood 8.6 mg/dL (8.5-10.1); Creatinine, Blood 1.76 mg/dL (0.60-1.20); Globulin, Blood 3.2 g/dL (2.2-4.0); Potassium, Blood 4.8 mmol/L (3.5-5.5); Total Protein, Blood 6.2 g/dL (6.4-8.2)
[2023-02-10 23:20] LABS: Source, Urine Foley catheter
[2023-02-10 23:25] LABS: Bilirubin, Urine Neg (Neg); Blood, Urine Neg (Neg); Glucose Qualitative, Urine 4+ (Neg); Ketones, Urine Neg (Neg); Leukocyte Esterase, Urine Neg (Neg); Nitrite, Urine Neg (Neg); Protein, Urine Neg (Neg); Urobilinogen, Urine NORM (Normal)
[2023-02-10 23:40] LABS: Appearance, Urine Clear (Clear); Color, Urine Yellow (P-Yellow)
[2023-02-11] VITALS (67 sets, daily range): BP systolic 89–173; BP diastolic 48–118
[2023-02-11 00:10] LABS: Influenza A, PCR NEGATIVE (NEGATIVE); Influenza B, PCR NEGATIVE (NEGATIVE); Resp Syncytial Virus, PCR NEGATIVE (NEGATIVE); SARS-Cov-2 (COVID-19) PCR, MMC NEGATIVE (NEGATIVE)
[2023-02-11 00:47] LABS: U Amphetamine Screen Not Detected; U Barbituate Screen Not Detected; U Benzodiazapine Screen Not Detected; U Buprenorphine Screen Not Detected; U Cannabinoids Screen Not Detected; U Cocaine Screen Not Detected; U Methadone Screen Not Detected; U Methamphetamine Screen Not Detected; U Opiates Screen Not Detected; U Oxycodone Screen DETECTED; U Phencyclidine Screen Not Detected
--- NOTE | 2023-02-11 02:30 | NUR ---
ADMISSION/ASSESSMENT PT ARRIVED VIA GURNEY WITH ER STAFF. TRANSFERED OVER TO BED WITH SLIDER SHEET. PT AWAKE AND A&O X4. MOVING EXT AND ASSISTING WITH TURNING. PT REPORTED PAIN TO BILAT FEET AND BACK. STATES,"I TAKE OXY EVERY 4 HOURS. I HAVE NOT HAD IT SINCE I HAVE BEEN HERE". TALKED WITH PT ABOUT CODE STATUS, PT STATES,"I DON'T WANT CPR OR TO BE SHOCKED. I"M GOOD WITH MEDS AND INTUBATION/VENT". CALL OUT TO MD REGARDING DIET, MEDS AND CODE STATUS. LUNGS CLEAR BUT DECREASED ON 2 LITER VIA OXYMASK. PRODUCTIVE COUGH AT TIMES. DENIES SOB AT THIS TIME. HEART RATE REGULAR IN THE 70'S. BP STABLE ON LEVOPHED TO KEEP MAP GREATER THAN 65. NO EDEMA NOTED. PT MOVING EXT. BT+ ABD SOFT AND NONTENDER. DENIES N/V. LLQ WITH COLOSTOMY, APPLIANCE INTACT. STANLEY SOFT STOOL NOTED IN BAG. GRANT CATH PATENT DRAINING CLEAR YELLOW URINE. IV 18G TO LEFT AC WITH NS AT 75 ML/HR AND LEVOPHED AT 2.5 MCQ/MIN. PT ANSWERING QUESTION APPROPO.
[2023-02-11 02:49] LABS: C DIFFICILE DNA POSITIVE (Negative)
--- NOTE | 2023-02-11 03:40 | NUR ---
CALL TO SPOKE WITH DR JOAQUIN REGARDING CODE STATUS, CHANGED TO LIMITED PER PT REQUEST. DIET ORDERED. PT TO RECEIVE FENTANTYL AT THIS TIME FOR PAIN DUE TO RENAL FUNCTION.
[2023-02-11 03:41] LABS: BASOPHILS ABSOLUTE AUTO 0.02 K/mm3 (0.00-0.23); BASOPHILS PERCENT AUTO 0 % (0-2); EOSINOPHILS ABSOLUTE AUTO 0.26 K/mm3 (0.00-0.68); EOSINOPHILS PERCENT AUTO 2 % (0-6); Hematocrit 36.1 % (37.0-53.0); Hemoglobin 11.5 g/dL (13.5-17.5); IMMATURE GRAN ABSOLUTE AUTO 0.05 K/mm3 (0.00-0.10); IMMATURE GRAN PERCENT AUTO 0 % (0-1); LYMPHOCYTES ABSOLUTE AUTO 1.43 K/mm3 (0.84-5.20); LYMPHOCYTES PERCENT AUTO 13 % (21-46); MONOCYTES ABSOLUTE AUTO 1.12 K/mm3 (0.16-1.47); MONOCYTES PERCENT AUTO 10 % (4-13); Mean Corpuscular HGB 27.2 pg (26.0-34.0); Mean Corpuscular HGB Conc 31.9 g/dL (31.5-36.5); Mean Corpuscular Volume 85 fL (80-100); Mean Platelet Volume 9.8 fL (9.1-12.4); NEUTROPHILS ABSOLUTE AUTO 8.42 K/mm3 (1.96-9.15); NEUTROPHILS PERCENT AUTO 75 % (41-73); Platelet Count 198 K/mm3 (150-400); RDW Coefficient Variation 16.5 % (11.7-14.2); RDW Standard Deviation 50.3 fL (35.1-46.3); Red Blood Cell Count 4.23 M/mm3 (4.30-5.90)
[2023-02-11 04:04] LABS: Albumin, Blood 2.8 g/dL (3.4-5.0); Albumin/Globulin Ratio 0.9 (0.8-1.8); Bilirubin, Total 0.4 mg/dL (0.1-1.0); Bun/Creatinine Ratio 20.7 (12.0-20.0); Calcium, Blood 8.3 mg/dL (8.5-10.1); Creatinine, Blood 1.88 mg/dL (0.60-1.20); Globulin, Blood 3.2 g/dL (2.2-4.0); Potassium, Blood 4.2 mmol/L (3.5-5.5)
[2023-02-11] MEDS ORDERED: Robaxin750 MG PO (04:29)
[2023-02-11] MEDS ORDERED: DULCOLAX400 MG/5 M PO (04:31)
[2023-02-11] MEDS ORDERED: Cleocin HCl150 MG PO (04:33)
--- NOTE | 2023-02-11 05:53 | NUR ---
SHIFT SUMMARY PT RESTING QUIELTY. MED WITH FENTANYL 25 MCQ ONCE DURING THE NIGHT FOR PAIN TO BILAT FEET AND BACK WITH GOOD RESULT. PT ON LEVOPHED AT 4 MCQ/MIN TO KEEP MAP GREATER THAN 65. GRANT CATH PATENT AND DRAINING CLEAR YELLOW URINE. NS AT 75 ML/HR FOR THIS BAG THAN WILL BE SALINE LOCKED. REPORT TO ON COMING NURSE
--- NOTE | 2023-02-11 07:00 | NUR ---
ASSUMPTION OF CARE PT RESTING, WAKENS TO VERBAL STIMULI. HE IS ON LEVOPHED 4MCG/MIN AND NS 75ML/HR. HE IS ON 2L OXYMASK WITH SPO2 >92%. MAP >65. GRANT PATENT AND DRAINING LARGE AMOUNT OF PALE YELLOW URINE TO GRAVITY. BED IN LOW POSITION, CALL LIGHT WITHIN REACH.
--- NOTE | 2023-02-11 11:42 | NUR ---
Spiritaul care visit conducted. Patient is lying in bed and alert. He tells me about his medical problems and his fears related to those issues. He also talks at length about his spiritual journey and the deep meaning that his dannie in God has brought him. Patient is clearly encouraged as he shares his own dannie story and is further encouraged by the prayers supplied by this Electromechanical Technician. I will continue to remian available to patient and family.
--- NOTE | 2023-02-11 16:11 | NUR ---
RUPERT 2 RUPERT WERE PLACED ON BACK OF HEAD ON 02/02. RUPERT REMOVED. SMALL SCAB REMAINS IN PLACE.
--- NOTE | 2023-02-11 18:46 | NUR ---
SHIFT SUMMARY PT RECEIVING NS 75ML/HR. LEVOPHED HAS BEEN OFF SINCE APPROX 1400. PT REMAINS ALERT AND ORIENTED WITH PLEASANT AFFECT. HE REPORTS FEELING BETTER THAN YESTERDAY. HE REMAINS ON 2L NC WHICH IS HIS BASELINE. HE HAS TOLERATED MEALS WELL THROUGHOUT THE DAY. OSTOMY EMPTIED SEVERAL TIMES THROUGHOUT THE DAY. GRANT PATENT AND DRAINING LARGE AMOUNTS OF PALE YELLOW URINE. BED IN LOW POSITION, CALL LIGHT WITHIN REACH. KELLY MELTON CALLED AND REQUESTED IF PT WAS DISCHARGED OVER THE WEEKEND, TO SEND A PRESCRIPTION FOR HOME O2.
--- NOTE | 2023-02-11 22:37 | NUR ---
ASSUMED CARE CARE ASSUMED OF PT AT 1900, REPORT GIVEN BY FEDERICO LANTIGUA. PT A/O X3-4. PT ABLE TO PARTICIPATE IN CONVERSATION AND ANSWER QUESTIONS APPROPRIATELY. PT OCCASIONALLY ASKING WHY HE WAS IN THE HOSPITAL BUT REMEMBERS QUICKLY AFTER PROMPTING. PT ON 2 L N/C, O2 SATS > 95%. CARDIAC MONITORING REFLECTS NSR, HR 90s. SBP 120s. PT ABLE TO REPOSITION INDEPENDENTLY IN BED. PT DENIES CP/SOB. COLOSTOMY APPLIANCE PATENT, DRAINING LARGE AMOUNTS OF LIQUID, BROWN STOOL. GRANT PATENT AND DRAINING TO GRAVITY.
[2023-02-12] VITALS (14 sets, daily range): BP systolic 114–198; BP diastolic 55–109
[2023-02-12 03:39] LABS: BASOPHILS ABSOLUTE AUTO 0.03 K/mm3 (0.00-0.23); BASOPHILS PERCENT AUTO 0 % (0-2); EOSINOPHILS ABSOLUTE AUTO 0.34 K/mm3 (0.00-0.68); EOSINOPHILS PERCENT AUTO 4 % (0-6); Hematocrit 37.6 % (37.0-53.0); Hemoglobin 12.3 g/dL (13.5-17.5); IMMATURE GRAN ABSOLUTE AUTO 0.03 K/mm3 (0.00-0.10); IMMATURE GRAN PERCENT AUTO 0 % (0-1); LYMPHOCYTES ABSOLUTE AUTO 1.66 K/mm3 (0.84-5.20); LYMPHOCYTES PERCENT AUTO 21 % (21-46); MONOCYTES PERCENT AUTO 12 % (4-13); Mean Corpuscular HGB 27.2 pg (26.0-34.0); Mean Corpuscular HGB Conc 32.7 g/dL (31.5-36.5); Mean Corpuscular Volume 83 fL (80-100); Mean Platelet Volume 9.6 fL (9.1-12.4); NEUTROPHILS ABSOLUTE AUTO 4.85 K/mm3 (1.96-9.15); NEUTROPHILS PERCENT AUTO 62 % (41-73); Platelet Count 194 K/mm3 (150-400); RDW Coefficient Variation 15.9 % (11.7-14.2); RDW Standard Deviation 48.2 fL (35.1-46.3); Red Blood Cell Count 4.52 M/mm3 (4.30-5.90); White Blood Cell Count 7.81 K/mm3 (4.00-11.30)
[2023-02-12 03:55] LABS: Albumin, Blood 2.9 g/dL (3.4-5.0); Anion Gap 3 mmol/L (6-16); Blood Urea Nitrogen 21 mg/dL (8-24); Bun/Creatinine Ratio 18.6 (12.0-20.0); CO2, Blood 24 mmol/L (21-32); Calcium, Blood 8.9 mg/dL (8.5-10.1); Chloride, Blood 116 mmol/L (98-108); Creatinine, Blood 1.13 mg/dL (0.60-1.20); Glomerular Filtration Rate 73 (60-); Glucose, Blood 122 mg/dL (70-99); Phosphorus, Blood 2.8 mg/dL (2.5-4.9); Potassium, Blood 4.6 mmol/L (3.5-5.5); Sodium, Blood 143 mmol/L (136-145)
--- NOTE | 2023-02-12 06:13 | NUR ---
SHIFT SUMMARY PT REMAINS A/O X3-4. PT ABLE TO PARTICIPATE IN CONVERSATION AND ASKS QUESTIONS APPROPRIATELY. PT MEDICATED FOR PAIN PER EMAR THIS SHIFT. PT ABLE TO RESPOSITION INDEPENDENTLY IN THE BED. PT REMAINS ON 2 L N/C, O2 SATS > 95%. CARDIAC MONITORING REFLECTS NSR, SBP 120s, HR 80s. COLOSTOMY PATENT AND DRAINING BROWN/LIQUID STOOL. GRANT PATENT AND DRAINING TO GRAVITY. PT CHANGED TO MEDICAL STATUS W/ TELE THIS SHIFT. PT DENIED CP/SOB THIS SHIFT.
--- NOTE | 2023-02-12 07:00 | NUR ---
ASSUMPTION OF CARE PT RECEIVING NS 75ML/HR. HE IS ALERT AND ORIENTED WITH PLEASANT AFFECT. HE REPORTS FEELING WELL TODAY AND GETTING SOME SLEEP OVERNIGHT. HE IS ON 2L NC. HR 80S, BP STABLE. OSTOMY HAS SMALL AMOUNT OF BROWN STOOL IN IT. GRANT PATENT AND DRAINING TO GRAVITY. BED IN LOW POSITION AND CALL LIGHT WITHIN REACH.
--- NOTE | 2023-02-12 16:16 | NUR ---
UPDATE PT REPORTS FEELING WELL THROUGHOUT THE DAY. HE REMAINS ALERT AND ORIENTED WITH PLEASANT AFFECT. HE HAS BEEN ON RA THIS AFTERNOON WITH SPO2 >93%. SINUS RHTYHM ON MONITOR WITH RATE IN 80S. PT HYPERTENSIVE, HOSPITALIST NOTIFIED AND PLAN TO RESUME HOME MEDICATIONS. OSTOMY HAS LOOSE/LIQUID BROWN OUTPUT. GRANT PATENT AND DRAINING TO GRAVITY. PT CURRENTLY WATCHING TV, CALL LIGHT WITHIN REACH.
--- NOTE | 2023-02-12 17:46 | NUR ---
SHIFT SUMMARY PT REMAINS ALERT AND ORIENTED. HE HAS BEEN ON RA THIS AFTERNOON WITH SPO2 >93%. PT TOLERATING MEALS AND SNACKS WELL. OSTOMY HAS LOOSE BROWN OUTPUT. GRANT PATENT AND DRAINING TO GRAVITY. PT REMAINS HYPERTENSIVE. HOSPITALIST NOTIFIED AND PLAN TO RESUME HOME MEDICATION REGIMEN. BED IN LOW POSITION, CALL LIGHT WITHIN REACH.
--- NOTE | 2023-02-12 20:49 | NUR ---
ASSUMPTION OF CARE BEDSDIE SHIFT REPORT RECEIVED FROM DAY SHIFT RN. PT RESTING IN BED, SLEEPING BUT AROUSABLE. PT ORIENTED X 4, ANSWERS QUESTIONS APPROPRIATELY, FOLLOWS COMMANDS AND IS ABLE TO MAKE NEEDS KNOWN. PT MOVES ALL EXTREMITIES EQUALLY BILATERALLY. HR 80-90'S SINUS, MAP >65, SBP 130-160'S. PT DENIES CP OR SOB. PT ON RA, OXYGEN SATURATION >90%. PT HAS COLOSTOMY TO LEFT ABDOMEN WITH APPLIANCE IN PLACE, LIQUID BROWN OUTPUT NOTED. GRANT IN PLACE PATENT DRAINING TO GRAVITY. PIV TO LAC AND RIGHT FOREARM SL. BED IN LOWEST POSITION, CALL LIGHT WITHIN REACH, CARE CONTINUES.
[2023-02-13] VITALS (11 sets, daily range): BP systolic 108–159; BP diastolic 61–91
[2023-02-13 03:53] LABS: BASOPHILS ABSOLUTE AUTO 0.04 K/mm3 (0.00-0.23); BASOPHILS PERCENT AUTO 1 % (0-2); EOSINOPHILS PERCENT AUTO 3 % (0-6); Hematocrit 39.1 % (37.0-53.0); Hemoglobin 13.2 g/dL (13.5-17.5); IMMATURE GRAN ABSOLUTE AUTO 0.05 K/mm3 (0.00-0.10); IMMATURE GRAN PERCENT AUTO 1 % (0-1); LYMPHOCYTES ABSOLUTE AUTO 2.29 K/mm3 (0.84-5.20); LYMPHOCYTES PERCENT AUTO 26 % (21-46); MONOCYTES ABSOLUTE AUTO 0.91 K/mm3 (0.16-1.47); MONOCYTES PERCENT AUTO 10 % (4-13); Mean Corpuscular HGB 27.6 pg (26.0-34.0); Mean Corpuscular HGB Conc 33.8 g/dL (31.5-36.5); Mean Corpuscular Volume 82 fL (80-100); Mean Platelet Volume 9.8 fL (9.1-12.4); NEUTROPHILS ABSOLUTE AUTO 5.25 K/mm3 (1.96-9.15); NEUTROPHILS PERCENT AUTO 59 % (41-73); Platelet Count 227 K/mm3 (150-400); RDW Coefficient Variation 15.7 % (11.7-14.2); RDW Standard Deviation 45.8 fL (35.1-46.3); Red Blood Cell Count 4.79 M/mm3 (4.30-5.90); White Blood Cell Count 8.84 K/mm3 (4.00-11.30)
[2023-02-13 04:12] LABS: Anion Gap 3 mmol/L (6-16); Blood Urea Nitrogen 17 mg/dL (8-24); Bun/Creatinine Ratio 17.6 (12.0-20.0); CO2, Blood 27 mmol/L (21-32); Calcium, Blood 9.3 mg/dL (8.5-10.1); Chloride, Blood 115 mmol/L (98-108); Creatinine, Blood 0.97 mg/dL (0.60-1.20); Glomerular Filtration Rate 88 (60-); Glucose, Blood 124 mg/dL (70-99); Phosphorus, Blood 3.8 mg/dL (2.5-4.9); Potassium, Blood 4.5 mmol/L (3.5-5.5); Sodium, Blood 145 mmol/L (136-145)
--- NOTE | 2023-02-13 06:07 | NUR ---
SHIFT SUMMARY PT RESTING IN BED, SLEEPING BUT AROUSABLE. PT ANSWERS QUESTIONS APPROPRIATELY, FOLLOWS COMMANDS AND IS ABLE TO MAKE HIS NEEDS KNOWN. HR 60-70'S SINUS, MAP >65. PT ON OXYMASK AT 4LPM WHILE SLEEPING, OXYGEN SATURATION >95%. GRANT PATENT DRAINING YELLOW URINE TO GRAVITY. COLOSTOMY IN PLACE TO LEFT ABDOMEN, APPLIANCE IN PLACE, LIQUID BROWN OUTPUT NOTED. PIV TO LAC AND LEFT FOREARM SL. PT HAD ONE EPISODE OF NAUSEA THIS SHIFT, MEDICATED PER EMAR. PT ALSO COMPLAINED OF PAIN THROUGHOUT SHIFT, MEDICATED PER EMAR. BED IN LWOEST POSITION, CALL LIGHT WITHIN REACH. CARE CONTINUES.
--- NOTE | 2023-02-13 08:05 | NUR ---
INITIAL ASSESSMENT PATIENT ALERT AND ORIENTED X 4, AFEBRILE. PATIENT COMPLAINS OF CHRONIC BACK, NECK AND FEET PAIN. PATIENT STATES HE USES A WALKER AT BASELINE. WEAKNESS IN LEGS NOTED. LUNGS CLEAR IN UPPER LOBES AND DIMINISHED IN LOWER LOBES. PATIENT SATTING 90% AND GREATER WHILE AWAKE. PATIENT IN SR, HR IN THE 60S. SBP IN THE 140S. COLOSTOMY TO LLQ. GRANT DRAINING YELLOW COLORED URINE. BED LOW, CALL LIGHT IN REACH. CARE CONTINUES.
--- NOTE | 2023-02-13 12:05 | NUR ---
PATIENT AFEBRILE. HR IN THE 60S. SBP IN THE 130S. BLOOD SUGAR 161; COVERAGE GIVEN. NO OTHER ACUTE CHANGES TO NOTE ON AT THIS TIME. CARE CONTINUES.
[2023-02-13] MEDS ORDERED: TRAZ50 PO (14:40)
[2023-02-13] MEDS ORDERED: VANCOCIN HCL250 MG PO (14:40)
[2023-02-13] MEDS ORDERED: FURO20 PO (14:43)
--- NOTE | 2023-02-13 17:02 | NUR ---
SHIFT SUMMARY PATIENT NAPPED ON AND OFF. PATIENT REMAINED ALERT AND ORIENTED X 4, AFEBRILE. PATIENT GIVEN PRN OXYCODONE FOR COMPLAINTS OF CHRONIC FEET, NECK AND BACK PAIN. PATIENT WORKED WITH THERAPY THIS SHIFT. PATIENT UP AND AMBULATED WITH WALKER. PATIENT WEAK BUT STATES HE IS AT HIS BASELINE. PATIENT REMAINED SATTING 90% AND GREATER ON RA WHILE AWAKE. PATIENT REMAINED IN SR, HR 60S TO 70S. SBP LOW 100S TO 150S. COLOSTOMY HAD 10 MLS OF OUTPUT BUT WAS BURPED 3 TIMES THIS SHIFT. 1600 MLS OF URINE OUT FROM GRANT THIS SHIFT. GRANT REMOVED AT 1430. NO CHANGES TO SKIN NOTED. PATIENT REFUSED BED BATH THIS SHIFT. BLOOD SUGARS 143, 161 AND 140 THIS SHIFT. PATIENT JUST PICKED UP BY [facility] AND IS BEING TAKEN BACK TO [facility]. REPORT GIVEN TO STAFF AT [facility]. STAFF INFORMED THAT GRANT DC'D AT 1430 AND PATIENT HAS NOT VOIDED SINCE. STAFF STATED THEY WOULD KEEP AN EYE ON MAKING SURE PATIENT VOIDS 6 HOURS POST GRANT REMOVAL. STAFF INFORMED THAT 3 CAPS OF VANCO INCLUDED IN [facility]LL PRESCRIPTIONS FOR CONTINUING VANCO AND LASIX AND ALL DISCHARGE INFORMATION. PATIENT STATED HE UNDERSTOOD DISCHARGE INFO AND INSTRUCTIONS. PATIENT BELONGINGS SENT WITH PATIENT. DISCHARGE COMPLETE.
== END 2023-02-13 17:02 | DRG 371 ==
LOC: ER 20:44 → ERHOLD 20:45 → ICUE 23:17 → ERHOLD 23:17 → ICUE 02-11 02:24
PROVIDERS: Emergency Medicine; Specialist; Student in an Organized Health Care Education/Training Program; ADMIT Internal Medicine
PROC: 3E033XZ Introduction of Vasopressor into Peripheral Vein, Percutaneous Approach (ICD-10-PCS; principal; 2023-02-11)
DX: A04.72 Enterocolitis due to Clostridium difficile, not specified as recurrent (principal); G92.8 Other toxic encephalopathy; J18.9 Pneumonia, unspecified organism; J96.21 Acute and chronic respiratory failure with hypoxia; N17.9 Acute kidney failure, unspecified; I50.22 Chronic systolic (congestive) heart failure; I95.9 Hypotension, unspecified; E86.0 Dehydration; E11.9 Type 2 diabetes mellitus without complications; E04.8 Other specified nontoxic goiter; F17.210 Nicotine dependence, cigarettes, uncomplicated; F32.A Depression, unspecified; G89.29 Other chronic pain; M54.9 Dorsalgia, unspecified; D64.9 Anemia, unspecified; G47.33 Obstructive sleep apnea (adult) (pediatric); Z85.048 Personal history of other malignant neoplasm of rectum, rectosigmoid junction, and anus; Z93.3 Colostomy status; Z11.52 Encounter for screening for COVID-19; Z92.21 Personal history of antineoplastic chemotherapy; Z92.3 Personal history of irradiation; Z79.82 Long term (current) use of aspirin; Z88.8 Allergy status to other drugs, medicaments and biological substances; Z79.4 Long term (current) use of insulin; Z79.84 Long term (current) use of oral hypoglycemic drugs; Z79.899 Other long term (current) drug therapy
CPT/HCPCS: 0241U; 36415; 51702; 71045; 80053; 80069; 81003; 82947; 83605; 83880; 84145; 85025; 87040; 87324; 87493; 93005; 93010; 96365-59; 96366-59; 96367-59; 96372-59; 96375-59; 97110; 97162; 99291-25; A9270; J0456; J0696; J1650; J2405; J2543; J3010; J7030; J7050

== ENCOUNTER 2023-03-26 08:08 | Emergency (ER) | payer OTHER ==
[~2023-03-26] VITALS: Ht 190.5 cm; Wt 115.7 kg
[~2023-03-26 08:08] MED LIST changes: +CYMBALTA30 M1 PO; +FAMO20 PO; +FLOMAX0.4 MG PO; +LYRICA150 M1 PO; +MELATONIN 5 MG1 EACH PO; +OLANZAPINE20 M1 PO; +TRAZ50 PO; +VANCOCIN HCL250 MG PO
[2023-03-26] MEDS ORDERED: NS 500 ML IV SCH (08:25)
[2023-03-26 08:36] LABS: BASOPHILS ABSOLUTE AUTO 0.04 K/mm3 (0.00-0.23); BASOPHILS PERCENT AUTO 0 % (0-2); EOSINOPHILS ABSOLUTE AUTO 0.32 K/mm3 (0.00-0.68); EOSINOPHILS PERCENT AUTO 3 % (0-6); Hematocrit 40.5 % (37.0-53.0); Hemoglobin 12.9 g/dL (13.5-17.5); IMMATURE GRAN PERCENT AUTO 2 % (0-1); LYMPHOCYTES ABSOLUTE AUTO 1.72 K/mm3 (0.84-5.20); LYMPHOCYTES PERCENT AUTO 15 % (21-46); MONOCYTES ABSOLUTE AUTO 1.01 K/mm3 (0.16-1.47); MONOCYTES PERCENT AUTO 9 % (4-13); Mean Corpuscular HGB 27.1 pg (26.0-34.0); Mean Corpuscular HGB Conc 31.9 g/dL (31.5-36.5); Mean Corpuscular Volume 85 fL (80-100); Mean Platelet Volume 9.9 fL (9.1-12.4); NEUTROPHILS ABSOLUTE AUTO 8.56 K/mm3 (1.96-9.15); NEUTROPHILS PERCENT AUTO 72 % (41-73); Platelet Count 266 K/mm3 (150-400); RDW Coefficient Variation 15.5 % (11.7-14.2); RDW Standard Deviation 48.4 fL (35.1-46.3); Red Blood Cell Count 4.76 M/mm3 (4.30-5.90); White Blood Cell Count 11.85 K/mm3 (4.00-11.30)
[2023-03-26 08:54] LABS: Albumin, Blood 3.3 g/dL (3.4-5.0); Albumin/Globulin Ratio 0.8 (0.8-1.8); Bilirubin, Total 0.6 mg/dL (0.1-1.0); Bun/Creatinine Ratio 14.6 (12.0-20.0); Calcium, Blood 9.6 mg/dL (8.5-10.1); Creatinine, Blood 1.23 mg/dL (0.60-1.20); Potassium, Blood 4.9 mmol/L (3.5-5.5); Total Protein, Blood 7.3 g/dL (6.4-8.2)
[2023-03-26] MEDS ORDERED: Loperamide HCl 2 MG Cap PO ONE (09:05)
[2023-03-26 10:45] VITALS: BP 108/54
== END 2023-03-26 11:10 | disposition home or self-care (01) ==
LOC: ER 08:08
PROVIDERS: Emergency Medicine
DX: R19.7 Diarrhea, unspecified (principal); Z87.891 Personal history of nicotine dependence; I11.0 Hypertensive heart disease with heart failure; I50.20 Unspecified systolic (congestive) heart failure; G47.33 Obstructive sleep apnea (adult) (pediatric); F31.9 Bipolar disorder, unspecified; E11.42 Type 2 diabetes mellitus with diabetic polyneuropathy; N40.1 Benign prostatic hyperplasia with lower urinary tract symptoms; R33.9 Retention of urine, unspecified; Z85.038 Personal history of other malignant neoplasm of large intestine; Z79.84 Long term (current) use of oral hypoglycemic drugs; Z79.82 Long term (current) use of aspirin; Z79.51 Long term (current) use of inhaled steroids; Z79.4 Long term (current) use of insulin; Z79.899 Other long term (current) drug therapy; Z88.8 Allergy status to other drugs, medicaments and biological substances
CPT/HCPCS: 80053; 85025; 93005; 93010; 99284-25; A9270; J7030

== ENCOUNTER → 2023-05-20 | Outpatient (CLI) | payer OTHER ==
[2023-05-20 12:08] LABS: Albumin, Blood 3.4 g/dL (3.4-5.0); Albumin/Globulin Ratio 1.3 (0.8-1.8); Bilirubin, Total 0.6 mg/dL (0.1-1.0); Bun/Creatinine Ratio 10.4 (12.0-20.0); Creatinine, Blood 0.96 mg/dL (0.60-1.20); Globulin, Blood 2.7 g/dL (2.2-4.0); Potassium, Blood 4.1 mmol/L (3.5-5.5); Total Protein, Blood 6.1 g/dL (6.4-8.2)
== END ==
LOC: EDSTATUS 08:15 → LAB QU 10:59
DX: E11.40 Type 2 diabetes mellitus with diabetic neuropathy, unspecified (principal); Z86.010 Personal history of colon polyps
CPT/HCPCS: 80053